=== PATIENT | female | born 1940 | race Caucasian/White ===

== ENCOUNTER → 2020-08-15 11:16 | Outpatient (CLI) | payer OTHER, SELFPAY ==
--- NOTE | ~2020-08-15 | CT_ITS ---
EXAMINATION: CT abdomen pelvis w con EXAM DATE: 08/15/2020 11:52 INDICATION: Loss, epigastric pain, nausea. TECHNIQUE: Spiral CT of the abdomen and pelvis was performed following intravenous injection of 100 m L Omnipaque 350. Axial, coronal and sagittal images were reviewed. The dose-length product (DLP) fo r this examination was 183.80 mGy-cm. The exposure was tailored according to patient size (auto mA e xposure control), and iterative reconstruction (ASIR) was used as additional dose reduction technique . Comparison is made to prior examination from 10/01/2018. FINDINGS: There is density within the right renal pelvis without definite evidence of calyceal contra st at this phase of imaging, indicating that this could be a solid soft tissue renal pelvic mass such as transitional cell cancer. This region measures about 1.7 cm, involves the proximal aspect of the right ureter. There is also mildly diffusely heterogeneous renal parenchymal enhancement bilaterally without perinephric fat stranding or ureteral enhancement. This could be sequela from prior infection s or infarctions, pyelonephritis not excludable. There is mild diffuse bladder wall thickening, acute or chronic cystitis. Recommend excluding cystitis and pyelonephritis with urinalysis. The largest liver cyst is in the caudate, measures 1.0 cm. The spleen, pancreas, and adrenal glands are unremarkable. Gallbladder is unremarkable. No biliary obstruction. The uterus is not identif ied and has likely been surgically resected. The bladder is unremarkable. There is no retroperitone al or pelvic lymphadenopathy. There is mild scattered arteriosclerotic disease. The appendix is normal. The stomach and small bowel are unremarkable. There is moderate scattered co lonic diverticulosis. There is no adjacent inflammatory change to suggest diverticulitis. No free i ntraperitoneal gas. The heart is normal in size. There are no pericardial or pleural effusions. T he lung bases are unremarkable. There are no osteoblastic or osteolytic lesions identified. IMPRESSION: 1. Right renal pelvic density suspicious for solid mass. Less likely excreted contrast. Consider consult for cystoscopy or CT urogram. 2. Mildly heterogeneous renal parenchymal enhancement bilaterally, could be small regions of prior i nfarction or infection; pyelonephritis not excludable. Consider urinalysis. 3. Diffuse mild bladder wall thickening, acute or chronic cystitis. 4. Colonic diverticulosis. Reviewed, dictated and finalized at location A. IMPRESSION: 1. Right renal pelvic density suspicious for solid mass. Less likely excreted contrast. Consider consult for cystoscopy or CT urogram. 2. Mildly heterogeneous renal parenchymal enhancement bilaterally, could be sm all regions of prior infarction or infection; pyelonephritis not excludable. Co nsider urinalysis. 3. Diffuse mild bladder wall thickening, acute or chronic cystitis. 4. Colonic diverticulosis.
[2020-08-15 11:36] LABS: Estimated Glomerular Filt Rate 48
== END ==
PROVIDERS: Visit Provider Student in an Organized Health Care Education/Training Program
DX: R63.4 Abnormal weight loss (principal); R10.13 Epigastric pain; R11.0 Nausea; K57.30 Diverticulosis of large intestine without perforation or abscess without bleeding
CPT/HCPCS: 74177; Q9967

== ENCOUNTER 2020-09-16 10:50 | Outpatient (CLI) | payer OTHER, SELFPAY ==
--- NOTE | 2020-09-16 10:53 | ECG_ITS ---
Measurements Intervals [place] Rate: 54 P: 74 [place]: 147 QRS: 8 QRSD: 149 T: 4 QT: 484 QTc: 461 Interpretive Statements SINUS BRADYCARDIA RIGHT BUNDLE BRANCH BLOCK BASELINE ARTIFACT- I, II, III, AVR, AVL ABNORMAL ECG Electronically Signed On 09-16-2020 12:06:35 CDT by Hudson Centeno D.O.
== END 2020-09-16 10:51 | disposition home or self-care (01) ==
LOC: ANHSURGERY 10:53
PROVIDERS: PCP Student in an Organized Health Care Education/Training Program; Visit Provider Urology
DX: I10 Essential (primary) hypertension (principal); I45.10 Unspecified right bundle-branch block; R00.1 Bradycardia, unspecified; R94.31 Abnormal electrocardiogram [ECG] [EKG]
CPT/HCPCS: 93005

== ENCOUNTER 2020-09-17 00:30 | Outpatient (CLI) | payer OTHER, SELFPAY ==
[2020-09-17 17:37] LABS: SARS-CoV-2 RNA PCR Negative
== END 2020-09-17 00:31 | disposition home or self-care (01) ==
LOC: ANHCOVIDDT 00:30
PROVIDERS: PCP Student in an Organized Health Care Education/Training Program; Visit Provider Urology
DX: Z01.812 Encounter for preprocedural laboratory examination (principal); Z20.828 Contact with and (suspected) exposure to other viral communicable diseases
CPT/HCPCS: 87635; C9803; U0003

== ENCOUNTER 2020-09-20 00:47 | Day surgery (SDC) | payer OTHER, SELFPAY ==
[2020-09-13 14:06] VITALS: BMI 16.7
--- NOTE | ~2020-09-20 | XR_ITS ---
EXAMINATION: XR retrograde pyelogram RT EXAM DATE: 09/20/2020 14:27 INDICATION: Right-sided obstructive nephropathy. TECHNIQUE: Fluoroscopy used during XR retrograde pyelogram RT performed by Dr. Mohsen Lugo MD. The DAP for this procedure was 1.6 mGym2. Cine run(s) available for review. Correlation was made with CT abdomen 08/15/2020. FINDINGS: Right ureter was cannulated, injected and is normal in appearance as are the calyces. No e vidence of renal pelvic mass to correlate with CT finding. Uncertain whether or not the recent CT fin ding could have been blood clot or excreted contrast. Correlate with procedure note. IMPRESSION: Fluoroscopy used during XR retrograde pyelogram RT. Reviewed, dictated and finalized at location A.
[2020-09-20] MEDS: LACTATED RINGERS 1,000 ML 30 ML IV CONT (12:18)
[2020-09-20 12:32] VITALS: BP 162/58; PULSE 47; RESP 16; TEMP 36.5; O2SAT 100
--- NOTE | 2020-09-20 13:16 | WPDHPUPDATE1 ---
History and Physical Update Update Date/Time: 09/20/20 13:16 History and Physical has been reviewed, including an updated exam of the patient. There are NO changes in the patient's condition. Risks, benefits, and alternatives have been discussed and questions answered. Patient agrees to proceed with procedure.
--- NOTE | 2020-09-20 13:21 | WPDANESEPPF ---
Anes - Initial Pre Proc Eval Procedure: Operation Date: 09/20/20 13:30 Proposed Procedures p Cystoscopy, Right Retrograde Pyelogram, Right Ureteroscopy with Possible Biopsy - Mohsen Lugo MD Date/Time: 09/20/20 13:21 Surgeon: Mohsen Lugo MD Pre Op Diagnosis: renal mass Patient Data Age: 80 Gender: F Height: 5 ft 5 in Weight: 48.2 kg Last Vital Signs Temp 36.5 C 09/20/20 12:32 Pulse 47 L 09/20/20 12:32 Resp 16 09/20/20 12:32 BP 162/58 H 09/20/20 12:32 Pulse Ox 100 09/20/20 12:32 Allergies Allergy/AdvReac Type Severity Reaction Status Date / Time No Known Allergies Allergy Unknown Verified 09/20/20 11:46 Home Medications Medication Instructions Recorded Confirmed Type cholecalciferol (vitamin D3) 50 2,000 unit PO DAILY #30 tablet 10/07/19 09/20/20 Rx mcg (2,000 unit) tablet fexofenadine-pseudoephedrine ER 1 tablet PO DAILY PRN #20 tablet 10/08/19 09/20/20 Rx 180 mg-240 mg tablet,ext.release 24 hr alprazolam 0.5 mg tablet 0.5 mg PO DAILY 01/27/20 09/20/20 History gabapentin 100 mg capsule 100 mg PO TID 01/27/20 09/20/20 History aspirin [Aspir-81] 81 mg PO DAILY 09/13/20 09/20/20 History calcium carb and citrat-mag ox 1 tablet PO QAM 09/13/20 09/20/20 History diltiazem HCl [Cartia XT] 180 mg DAILY 09/13/20 09/20/20 History donepezil [Aricept] 10 mg HS 09/13/20 09/20/20 History escitalopram oxalate 10 mg PO DAILY 09/13/20 09/20/20 History omeprazole 40 mg 3XW 09/13/20 09/20/20 History primidone 50 mg PO HS 09/13/20 09/20/20 History simvastatin 40 mg HS 09/13/20 09/20/20 History Patient hx anesthesia problems: none Family hx anesthesia problems: none PMFSH Past Medical History Medical History (Updated 01/27/20 @ 15:09 by Jazmin Schwartz RN) High cholesterol Hypertension Surgical History Surgical History History of elbow surgery Right History of hysterectomy Family History Family History Sibling Cerebrovascular accident, Onset Age: 77 Patient's sister is Mother Patient's mother is , Onset Age: 83 Father Patient's father is , Onset Age: 101 Social History Social History Smoking status: Never smoker Second hand tobacco smoke exposure: No Alcohol intake: unknown Substance use: never Living arrangements: with family Spiritual care concerns: No Anes - Eval Final PreProcedure Day of Procedure 09/20/20 13:21 Patient weight: thin Heart: regular rate and rhythm Lungs: clear to auscultation Airway: Mallampati scale class II Neurological: confused (dementia) Last oral intake: >/= 8 hours ASA classification: IV Emergent: no Anesthetic plan: proceed Anesthesia type and monitoring: general LMA and standard monitoring Informed Consent: The patient's anesthetic plan and its attendant risks and benefits were discussed with the patient and . Questions were solicited and answers provided to the satisfaction of the patient and .
--- NOTE | 2020-09-20 13:36 | WPDHPUPDATE1 ---
History and Physical Update Update Date/Time: 09/20/20 13:36 History and Physical has been reviewed, including an updated exam of the patient. There are NO changes in the patient's condition. Risks, benefits, and alternatives have been discussed and questions answered. Patient agrees to proceed with procedure. Proceed with cysto, right retrograde, right ureteroscopy with biopsy, possible stent placement.
[2020-09-20] MEDS: ceFAZolin 2 GM/D5W 50 ML 2 GM/50 ML BAG IVPB (13:54)
[2020-09-20] MEDS: LIDOCAINE HCL 2% GEL UROJET 10 ML PKG MUCOUS MEM (14:27)
--- NOTE | 2020-09-20 14:27 | P.OP_ITS ---
Procedure Note - Detailed Date of procedure: 09/20/20 Pre-op diagnosis: renal mass Post-op diagnosis: other ( no evidence of right renal pelvic mass or lesion.) Procedure performed: Cystoscopy, right retrograde pyelogram, right ureteroscopy Description of procedure: patient is taken to the operative suite and correctly identified. Once anesthesia was obtained she was placed in the dorsal lithotomy position and prepped and draped usual sterile fashion. Twenty-two K[place] scope was inserted the bladder. There are no tumors noted. Right ureteral orifice was cannulated with a [place] catheter. Retrograde pyelogram was performed. Th ere was no discrete filling defects noted. Given the CT findings we proceed with right ureteroscopy. A guidewire was then inserted up to the kidney. We dilated with an 8/10 dilator. A mini flexible ureteroscope was then inserted into the orifice. We did place a 2nd wire to help guide into the renal pelvis. Once in the renal pelvis the entire kidney was evaluated including the renal pelvis as well as every calyx. there were no tumors or irregularities noted at this time. Scope was removed. 2% viscous lidocaine was inserted urethra patient is taken recovery room stable condition. No further urologic follow-up needed at this time. Anesthesia: GLMA Surgeon: Mohsen Lugo MD Drains: No Packing: No Pathology: none sent Complications: No immediate complications Condition: stable Disposition: PACU
[2020-09-20 14:31] VITALS: BP 155/65; PULSE 49; RESP 9; TEMP 36.6; O2SAT 100
[2020-09-20 14:45] VITALS: BP 159/69; PULSE 50; RESP 12; O2SAT 100
[2020-09-20 15:00] VITALS: BP 157/68; PULSE 52; RESP 13; O2SAT 100
[2020-09-20 15:04] VITALS: BP 156/83; PULSE 65; RESP 16
[2020-09-20] MEDS: ONDANSETRON INJ 4 MG/2 ML VIAL IV PUSH ×2 (15:12→15:59)
[2020-09-20 15:34] VITALS: BP 151/61; PULSE 55; RESP 16
--- NOTE | 2020-09-20 15:34 | SUR.PHASEII ---
AT BEDSIDE THROUGHOUT OP STAY.
[2020-09-20] MEDS: ONDANSETRON HCL ODT 4 MG TABLET PO (16:12)
== END 2020-09-20 16:15 | disposition home or self-care (01) ==
PROVIDERS: PCP Student in an Organized Health Care Education/Training Program; Visit Provider Urology
PROC: (CPT 52352; principal; 2020-09-20 13:30)
DX: R93.421 Abnormal radiologic findings on diagnostic imaging of right kidney (principal); I10 Essential (primary) hypertension
CPT/HCPCS: 52351; 74420; A9270; C1758; C1769; J0690; J2405; J2704; J7120; Q9966

== ENCOUNTER 2021-02-01 14:01 | Outpatient (CLI) | payer OTHER, MEDICARE, SELFPAY | END 2021-02-01 14:02 | disposition home or self-care (01) | PROVIDERS: PCP Student in an Organized Health Care Education/Training Program | DX: Z23 Encounter for immunization (principal) | CPT/HCPCS: 0001A; 91300 ==

== ENCOUNTER 2021-02-22 13:54 | Outpatient (CLI) | payer OTHER, MEDICARE, SELFPAY | END 2021-02-22 13:55 | disposition home or self-care (01) | LOC: ANHCOVIDVC 13:54 | PROVIDERS: PCP Student in an Organized Health Care Education/Training Program | DX: Z23 Encounter for immunization (principal) | CPT/HCPCS: 0002A; 91300 ==

== ENCOUNTER → 2021-10-24 09:34 | Outpatient (REF) | payer OTHER, SELFPAY | LOC: ANHLAB 09:34 | PROVIDERS: PCP Student in an Organized Health Care Education/Training Program; Visit Provider Nurse Practitioner | DX: L57.0 Actinic keratosis (principal) | CPT/HCPCS: 88305 ==

== ENCOUNTER 2022-01-17 20:13 | Inpatient (IN) | payer OTHER, SELFPAY ==
--- NOTE | ~2022-01-17 | US_ITS ---
EXAMINATION: US carotid duplex BI DATE: 01/18/2022 15:32 INDICATION: Syncope. Carotid atherosclerosis. TECHNIQUE: Grayscale, color Doppler, and pulsed Doppler images of the cervical carotid arteries were obtained. The degree of vessel stenosis is placed in one of the following categories: normal, <50%, 5 0-69%, >=70% but less than near-occlusion, near-occlusion, or total occlusion. Note that percent sten osis relative to normal distal artery lumen diameter is indirectly measured from velocity measurement s as described by Molina, et al. Radiology 2003; 229:340-346. COMPARISON: 05/31/2017 FINDINGS: RIGHT: The right common carotid artery (CCA) peak systolic velocity (PSV) is 88 cm/s. The right internal car otid artery (ICA) PSV is 80 cm/s. The right ICA end-diastolic velocity (EDV) is 16 cm/s. The right IC A/CCA PSV ratio is 1.0. Grayscale and color Doppler images yield an estimate of <50% diameter reducti on from plaque in the ICA. The external carotid artery (ECA) PSV is 58 cm/s. There is antegrade flow in the right vertebral artery. LEFT: The left CCA PSV is 96 cm/s. The left ICA PSV is 119 cm/s. The left ICA EDV is 22 cm/s. The left ICA/ CCA PSV ratio is 1.2. Grayscale and color Doppler images yield an estimate of <50% diameter reduction from plaque in the ICA. The ECA PSV is 65 cm/s. There is antegrade flow in the left vertebral artery . IMPRESSION: 1. <50% stenosis in the right internal carotid artery. 2. <50% stenosis in the left internal carotid artery. Reviewed, dictated and finalized at location A. EWORKING BELT SANDER
--- NOTE | ~2022-01-17 | XR_ITS ---
EXAMINATION: XR chest 1V portable DATE: 01/17/2022 20:54 INDICATION: Hypertension. Syncope. TECHNIQUE: frontal view of the chest was obtained. COMPARISON: Chest radiograph dated 04/03/2016 FINDINGS: No focal airspace opacities, pulmonary edema, pleural effusion or pneumothorax. The cardiomediastinal silhouette is normal. IMPRESSION: 1. No acute cardiopulmonary disease. Reviewed, dictated and finalized at location A. SHOP SUPERVISOR
--- NOTE | ~2022-01-17 | CT_ITS ---
EXAMINATION: CT cervical spine wo con DATE: 01/17/2022 20:51 INDICATION: Found down post syncopal episode with fall TECHNIQUE: Computed tomography (CT) of the cervical spine was performed without intravenous contrast. Automated exposure control and iterative reconstruction technique were employed. The dose-length pro duct was 80.27 mGy-cm. COMPARISON: None FINDINGS: Mild cervicothoracic levocurvature. Exaggerated cervical kyphosis. No spondylolisthesis or facet subl uxation. Vertebral body heights are normal. No fracture. Moderate disc height loss at C6-C7 and mild disc height loss at C5-C6. No central canal stenosis. Multilevel bilateral moderate to severe cervica l facet osteoarthritis. Moderate neural from stenosis on the right at C5-C6. Small amount of atherosc lerotic calcific lesion at the bilateral carotid bulbs. Cervical soft tissues are unremarkable. IMPRESSION: 1. Mild to moderate cervical spondylosis. No acute osseous abnormality. Reviewed, dictated and finalized at location A. S AND MARKETING DIRECTOR
--- NOTE | ~2022-01-17 | CT_ITS ---
EXAMINATION: CT brain wo con DATE: 01/17/2022 20:51 INDICATION: Found down post syncopal episode with fall. TECHNIQUE: Computed tomography (CT) of the head was performed without intravenous contrast. Sagittal and coronal reconstructions were performed. The mA was adjusted according to patient size. Iterative reconstruction technique was employed. The dose-length product was 605.33 mGy-cm. COMPARISON: None FINDINGS: No fracture. No acute intracranial hemorrhage, acute infarction or abnormal extra axial fluid collect ion. Symmetric dystrophic calcifications at the bilateral basal ganglia. There is mild scattered whit e matter hypoattenuation consistent with chronic small vessel ischemic disease. Symmetric prominence of the sulci and ventricles consistent with moderate age-appropriate diffuse cerebral volume loss. Ve ntricles are normal and symmetric. No mass/mass effect. Changes of bilateral intraocular lens replace ment. The orbits, paranasal sinuses and mastoid air cells are normal. Mild intracranial calcified cer ebral atherosclerosis is noted at the carotid siphons. IMPRESSION: 1. No fracture or acute intracranial process. 2. Age-related changes including moderate diffuse volume loss and mild scattered white matter hypoatt enuation consistent with chronic small vessel ischemic disease. Reviewed, dictated and finalized at location A. UNICATIONS FIELD TECHNICIAN IMPRESSION: 1. No fracture or acute intracranial process. 2. Age-related changes including moderate diffuse volume loss and mild scattere d white matter hypoattenuation consistent with chronic small vessel ischemic di sease.
--- NOTE | 2022-01-17 20:22 | ECG_ITS ---
Measurements Intervals [place] Rate: 52 P: 52 [place]: 148 QRS: -19 QRSD: 154 T: -6 QT: 519 QTc: 486 Interpretive Statements SINUS BRADYCARDIA RIGHT BUNDLE BRANCH BLOCK BASELINE ARTIFACT- I, II, III, AVR, AVF, V2-V6 ABNORMAL ECG Electronically Signed On 01-17-2022 21:14:15 ASSET SPECIALIST by Hudson Centeno D.O.
[2022-01-17 20:23] VITALS: BP 110/43; PULSE 49; RESP 14; TEMP 36.6; O2SAT 95
--- NOTE | 2022-01-17 20:31 | ED.GENADULT ---
HPI - General Adult General Chief complaint: Syncope Stated complaint: syncopal - found on floor after approx 30 seconds Source: RN notes reviewed History of Present Illness HPI narrative: Patient presents emergency department from home via EMS for syncopal episode. The patient was in the bathroom brushing her teeth caring for bed when she had a syncopal episode. The was not initially in the room but came in and the patient was on the ground was out for approximately 30 seconds patient does not recall having any dizziness denies having any chest pain or shortness of breath she states she feels fine at this time patient does have a history of dementia and is ANO x2 at baseline denies any fevers or chills or recent illness Related Data Home Medications Medication Instructions Recorded Confirmed gabapentin 100 mg capsule 100 mg PO TID 01/27/20 09/20/20 aspirin 81 mg PO EVERY OTHER DAY 09/13/20 09/20/20 donepezil [Aricept] 10 mg HS 09/13/20 09/20/20 escitalopram oxalate 10 mg PO DAILY 09/13/20 09/20/20 omeprazole 40 mg 3XW 09/13/20 09/20/20 primidone 50 mg PO HS 09/13/20 09/20/20 acetaminophen 500 mg tablet 500 mg PO Q6H PRN 06/20/21 alprazolam 0.5 mg tablet 0.5 mg PO BID PRN tablet 06/20/21 amlodipine 2.5 mg tablet 2.5 mg PO DAILY tablet 06/20/21 atorvastatin 20 mg tablet 20 mg PO DAILY tablet 06/20/21 calcium 1 tablet PO BID tablet 06/20/21 carbonate,citrate-magnesium oxide 200 mg calcium-50 mg tablet docusate sodium 100 mg capsule 100 mg PO DAILY 06/20/21 memantine 7 mg capsule 7 mg PO DAILY ea 06/20/21 sprinkle,extended release 24hr multivitamin 1 tablet PO DAILY 06/20/21 omega-3 fatty acids 500 mg capsule 500 mg PO DAILY 06/20/21 polyethylene glycol 3350 17 17 g PO DAILY 06/20/21 gram/dose oral powder Allergies Allergy/AdvReac Type Severity Reaction Status Date / Time No Known Allergies Allergy Unknown Verified 11/13/21 13:33 Review of Systems Review of Systems: Gen.: Denies fevers or chills Eyes: Denies eye pain or visual change ENT: Denies congestion Respiratory: Denies shortness of breath or cough CV: Ports syncope GI: Denies abdominal pain nausea, emesis or diarrhea Musculoskeletal: Denies back pain or muscle pain Neuro: Denies numbness, tingling, weakness or focal weakness Skin: Denies rash Except as documented, all other systems reviewed and negative [facility] Past Medical History Medical History High cholesterol Hypertension Surgical History Surgical History History of elbow surgery Right History of hysterectomy Family History Family History Sibling Cerebrovascular accident, Onset Age: 77 Patient's sister is Mother Patient's mother is , Onset Age: 83 Father Patient's father is , Onset Age: 101 Social History Social History Smoking status: Never smoker Second hand tobacco smoke exposure: No Alcohol intake: never Substance use: never Spiritual care concerns: No Exam Narrative: APPEARANCE: No acute distress, nontoxic, resting in bed EYES: EOMI PERRL HEENT: Normocephalic, atraumatic, OMM RESPIRATORY: No respiratory distress Clear to auscultation bilaterally with no rhonchi wheezing or rales. CARDIOVASCULAR: Regular rate and rhythm without murmurs rubs or gallops. ABDOMINAL: Soft, nontender, nondistended, no rebound or guarding MUSCULOSKELETAl: Moves all extremities. No clubbing, cyanosis or edema. NEURO: Awake and alert x 2. Following commands, speech normal, no focal deficits SKIN:: Warm, dry. No rashes lesions or abrasions PSYCHIATRIC: Normal affect/mood, Course Course Emergency Course: Discussed with Dr. Levine presentation work-up agrees with admission at [facility]
--- NOTE | 2022-01-17 20:41 | PC.NURSE ---
PT TO CT SCAN.
[2022-01-17] MEDS: SODIUM CHLORIDE 0.9% IV 1,000 ML 999 ML IV CONT (21:13)
[2022-01-17 21:17] VITALS: BP 141/55; PULSE 51
[2022-01-17 21:19] VITALS: BP 136/50; PULSE 52
[2022-01-17 21:20] LABS: Basophils Percent Auto 0.3 % (0.2-1.2); Eosinophils Absolute Auto 0.1 K/mm3 (0-0.3); Eosinophils Percent Auto 1.4 % (0-4.4); Hematocrit 36.7 % (37.0-47.0); Hemoglobin 11.9 g/dL (12.0-15.0); Immature Granulocyte Absolute 0.03 K/mm3 (0.00-0.031); Immature Granulocyte Percent A 0.5 % (0-0.5); Lymphocytes Percent Auto 15.4 % (18.3-44.2); Mean Corpuscular HGB Conc 32.4 g/dl (32-36); Mean Corpuscular Hemoglobin 31.2 pg (26-34); Mean Corpuscular Volume 96.1 fl (80-100); Mean Platelet Volume 10.8 fl (7.4-10.4); Monocytes Absolute Auto 0.7 K/mm3 (0.1-0.6); Monocytes Percent Auto 11.4 % (2.6-8.5); Neutrophils Absolute Auto 4.6 K/mm3 (1.3-6.7); Platelet Count Result 141 k/mm3 (150-375); Red Blood Count 3.82 M/mm3 (4.2-5.4); Red Cell Distribution Width 13.2 % (11.5-14.5); White Blood Count 6.5 K/mm3 (4.5-10.0)
[2022-01-17 21:23] VITALS: BP 120/44; PULSE 57
[2022-01-17 21:32] LABS: Prothrombin Time 12.6 Seconds (11.1-14.7)
[2022-01-17 21:34] LABS: Alanine Aminotransferase 19 U/L (4-35); Albumin Level 3.8 g/dL (3.5-5.1); Alkaline Phosphatase 67 U/L (38-126); Anion Gap 6 mmol/L (8-16); Aspartate Amino Transferase 30 U/L (14-36); Bilirubin,Total 0.3 mg/dL (0.2-1.3); Blood Urea Nitrogen 21 mg/dL (7-17); Calcium 9.1 mg/dL (8.4-10.2); Carbon Dioxide 28 mmol/L (22-30); Chloride 104 mmol/L (98-107); Estimated CRCL calculation 30 ml/min; Estimated Glomerular Filt Rate 48; Glucose 125 mg/dL (65-110); Sodium 138 mmol/L (137-145)
[2022-01-17 21:45] LABS: Troponin I < 0.012 ng/mL (0.000-0.034)
--- NOTE | 2022-01-17 22:40 | PM.IMHP ---
H&P: HPI History of Present Illness Date/Time: 01/17/22 22:40 Chief Complaint: Syncope Narrative: This is an 81-year-old female with past medical history significant for Alzheimer's dementia, hypertension, dyslipidemia. Patient was brought to the emergency room after a year according to the while she was using the bathroom he heard a noise and when went to check she was laying on the floor. 911 was called and patient was brought to the emergency room. According to she has been her usual state of health patient is very confused and unable to give any history she knows she is in the hospital but does not know why , has no recollection of the events. Preliminary workup has been unrevealing. Review of Systems Review of Systems: ROS unobtainable: Yes unobtainable due to medical condition (Alzheimer's dementia) [facility] Past Medical History Medical History (Updated 01/18/22 @ 03:48 by Chuck Moon MD) High cholesterol Hypertension Surgical History Surgical History History of elbow surgery Right History of hysterectomy Family History Family History Sibling Cerebrovascular accident, Onset Age: 77 Patient's sister is Mother Patient's mother is , Onset Age: 83 Father Patient's father is , Onset Age: 101 Social History Social History Smoking status: Never smoker Second hand tobacco smoke exposure: No Alcohol intake: never Substance use: never Spiritual care concerns: No Meds Home Medications and Allergies Home Medications Medication Instructions Recorded Confirmed Type cholecalciferol (vitamin D3) 50 2,000 unit PO DAILY #30 tablet 10/07/19 01/18/22 Rx mcg (2,000 unit) tablet gabapentin 100 mg capsule 100 mg PO TID 01/27/20 01/18/22 History aspirin 81 mg PO EVERY OTHER DAY 09/13/20 01/18/22 History donepezil [Aricept] 10 mg HS 09/13/20 01/18/22 History escitalopram oxalate 10 mg PO DAILY 09/13/20 01/18/22 History omeprazole 40 mg 3XW 09/13/20 01/18/22 History primidone 50 mg PO HS 09/13/20 01/18/22 History acetaminophen 500 mg tablet 500 mg PO Q6H PRN 06/20/21 01/18/22 History alprazolam 0.5 mg tablet 0.5 mg PO BID PRN tablet 06/20/21 01/18/22 History amlodipine 2.5 mg tablet 2.5 mg PO DAILY tablet 06/20/21 01/18/22 History atorvastatin 20 mg tablet 20 mg PO DAILY tablet 06/20/21 01/18/22 History calcium 1 tablet PO BID tablet 06/20/21 01/18/22 History carbonate,citrate-magnesium oxide 200 mg calcium-50 mg tablet docusate sodium 100 mg capsule 100 mg PO DAILY 06/20/21 01/18/22 History memantine 7 mg capsule 7 mg PO DAILY ea 06/20/21 01/18/22 History sprinkle,extended release 24hr multivitamin 1 tablet PO DAILY 06/20/21 01/18/22 History omega-3 fatty acids 500 mg capsule 500 mg PO DAILY 06/20/21 01/18/22 History polyethylene glycol 3350 17 17 g PO DAILY 06/20/21 01/18/22 History gram/dose oral powder Allergies Allergy/AdvReac Type Severity Reaction Status Date / Time No Known Allergies Allergy Unknown Verified 11/13/21 13:33 Vital Signs Vital Signs - 24 hr 01/17/22 20:23 01/17/22 21:17 01/17/22 21:19 Temperature 98 F Pulse Rate 49 L 51 L 52 L Respiratory Rate 14 Blood Pressure 110/43 L 141/55 H 136/50 L Pulse Oximetry 95 01/17/22 21:23 Temperature Pulse Rate 57 L Respiratory Rate Blood Pressure 120/44 L Pulse Oximetry Exam Narrative: Patient is sitting in a stretcher Const: General: cooperative, comfortable, no acute distress, well developed, alert and awake Nutritional Appearance: thin Orientation/consciousness: oriented to person and oriented to place HENMT: Head: normal to inspection, normocephalic and atraumatic Ears: hearing grossly normal bilaterally General nose exam: Normal external
[2022-01-17 22:47] VITALS: BP 111/85; PULSE 58; RESP 16; O2SAT 98
[2022-01-17 23:36] LABS: SARS-CoV-2 RNA PCR Negative
[2022-01-18] VITALS (17 sets, daily range): BP systolic 128–1686; BP diastolic 57–67; PULSE 52–71; RESP 16–58; TEMP 36.4; O2SAT 96–99; BMI 19.3
--- NOTE | 2022-01-18 | ECHO_ITS ---
Patient Info Name: Yomaira June Age: 81 years : 1940 Gender: Female Ht: 66 in Wt: 120 lbs BSA: 1.59 m2 HR: 71 bpm BP: 146 / 57 mmHg Heart Rhythm: Sinus Rhythm Technical Quality: Good Exam Date: 01/18/2022 9:05 AM Exam Location: [facility] Exam Room: 252 Patient Status: Inpatient Admit Date: 01/17/2022 Staff Ordering Physician: Chuck Moon MD Electrician Crane Maintenance: Liz Blair RDCS Attending Provider: Carol Oconnell PA-C Referring Physician: Sarai WYATT; Exam Type: CA echo doppler color flow Study Info Indications - syncope Complete two-dimensional, color flow and Doppler transthoracic echocardiogram is performed. Summary 1. Complete two-dimensional, color flow and Doppler transthoracic echocardiogram is performed. 2. Left ventricular chamber dimension is normal. 3. Left ventricular systolic function is normal, estimated at 65-70%. 4. There is mildly increased left ventricular wall thickness. 5. The left ventricular diastolic function is grade II diastolic dysfunction. 6. There is no aortic valve stenosis. 7. There is mild tricuspid valve regurgitation. 8. Mild pulmonary hypertension, estimated pulmonary arterial systolic pressure is 40 mmHg. Left Ventricle Left ventricular chamber dimension is normal. Left ventricular systolic function is normal, estimated at 65-70%. There is mildly increased left ventricular wall thickness. The left ventricular diastolic function is grade II diastolic dysfunction. Right Ventricle Right ventricular chamber dimension is normal. Right ventricular systolic function is normal. Left Atria Left atrial chamber dimension is normal. Right Atria Right atrial chamber dimension is normal. Aortic Valve The aortic valve is trileaflet. There is no aortic valve stenosis. There is mild aortic valve regurgitation. Pulmonic Valve The pulmonic valve is normal. There is mild pulmonic regurgitation. Mitral Valve The mitral valve has normal leaflets. There is mild mitral valve regurgitation. The mitral valve annulus is mildly calcified. Tricuspid Valve The tricuspid valve leaflets are normal. There is mild tricuspid valve regurgitation. Mild pulmonary hypertension, estimated pulmonary arterial systolic pressure is 40 mmHg. Pericardium/Pleural The pericardium appears normal. There is no pericardial effusion. Inferior Vena Cava Dilated inferior vena cava with >50% collapse upon inspiration consistent with elevated right atrial pressure, 10 mmHg. Aorta The aortic root size at the sinus of Valsalva is normal. Left Ventricular Outflow Tract Name Value Normal LVOT 2D LVOT Diameter 2.0 cm LVOT Doppler LVOT Peak Gradient 4 mmHg LVOT Mean Gradient 2 mmHg LVOT VTI 27 cm LVOT VTI/AV VTI Ratio 0.9 LVOT Stroke Volume 86 ml LVOT CO 13.6 l/min LVOT CI 8.6 l/min/m2 Pulmonic Valve
[2022-01-18] MEDS: SODIUM CHLORIDE 0.9% IV 1,000 ML 999 ML IV CONT (01:04)
[2022-01-18 01:54] LABS: Add Urine Microscopic? YES; Appearance Urine Clear (Clear); Bilirubin Urine Negative (Negative); Blood Urine Negative (Negative); Color Urine Straw (Yellow); Glucose Urine UA Negative (Negative); Ketones Urine Negative (Negative); Leukocyte Esterase Ur Negative LEU/UL (Negative); Mucus Urine Rare /lpf; Nitrate Urine Negative (Negative); Protein Urine Negative (Negative); RBC Urine 0-2 /hpf (0-2); Urobilinogen Urine Negative mg/dL (<2.0); WBC Urine 0-3 /hpf
--- NOTE | 2022-01-18 02:02 | ADMGEN ---
This patient, Yomaira June, was admitted to Medical Room 252-01. Patient/family oriented to hospital policies and general routines including ID bracelet, bed and alarms, visiting hours, pain management, procedures, bathroom and other care routines, personal items, smoking policy, room service/diet, and visiting hours. Information on how to activate the Rapid Response Team has been discussed. Patient/Family are encouraged to report perceived risks to care and to ask questions if they do not understand what they are told or what they should do.
--- NOTE | 2022-01-18 02:39 | PC.NURSE ---
PT IS [place] [facility] AND ORIENTED X2. CONFUSED AT BASELINE BUT ABLE TO ANSWER SOME QUESTIONS. CALLED TO CONFIRM MEDICATION LIST.
[2022-01-18 05:53] LABS: Basophils Percent Auto 0.2 % (0.2-1.2); Eosinophils Absolute Auto 0.1 K/mm3 (0-0.3); Eosinophils Percent Auto 1.5 % (0-4.4); Hematocrit 35.1 % (37.0-47.0); Hemoglobin 11.1 g/dL (12.0-15.0); Immature Granulocyte Absolute 0.02 K/mm3 (0.00-0.031); Immature Granulocyte Percent A 0.3 % (0-0.5); Immature Platelet Fraction Pct 5.5 % (0.9-11.2); Lymphocytes Absolute Auto 1.39 K/mm3 (0.9-3.2); Lymphocytes Percent Auto 22.9 % (18.3-44.2); Mean Corpuscular HGB Conc 31.6 g/dl (32-36); Mean Corpuscular Hemoglobin 30.5 pg (26-34); Mean Corpuscular Volume 96.4 fl (80-100); Mean Platelet Volume 11.3 fl (7.4-10.4); Monocytes Absolute Auto 0.8 K/mm3 (0.1-0.6); Monocytes Percent Auto 13.7 % (2.6-8.5); Neutrophils Absolute Auto 3.7 K/mm3 (1.3-6.7); Neutrophils Percent Auto 61.4 % (45.5-73.1); Platelet Count Result 125 k/mm3 (150-375); Red Blood Count 3.64 M/mm3 (4.2-5.4); Red Cell Distribution Width 13.1 % (11.5-14.5); White Blood Count 6.1 K/mm3 (4.5-10.0)
[2022-01-18 07:02] LABS: Anion Gap 2 mmol/L (8-16); Blood Urea Nitrogen 21 mg/dL (7-17); Calcium 8.5 mg/dL (8.4-10.2); Carbon Dioxide 29 mmol/L (22-30); Chloride 111 mmol/L (98-107); Estimated CRCL calculation 37 ml/min; Estimated Glomerular Filt Rate 60; Glucose 98 mg/dL (65-110); Sodium 142 mmol/L (137-145)
[2022-01-18 07:14] LABS: Troponin I < 0.012 ng/mL (0.000-0.034)
[2022-01-18] MEDS: ASPIRIN 81 MG ENTERIC TABLET PO (08:26)
[2022-01-18] MEDS: CHOLECALCIFEROL 1,000 UNITS TABLET 2000 UNITS PO (08:26)
[2022-01-18] MEDS: ATORVASTATIN 20 MG TABLET PO (08:26)
[2022-01-18] MEDS: polyethylene glycoL 3350 17 GM POWD.PACK PO (08:27)
[2022-01-18] MEDS: MULTIVITAMINS THERAPEUTIC TAB (*BKC) 1 TABLET PO (08:27)
[2022-01-18] MEDS: MEMANTINE HCL XR 7 MG CAP PO (08:27)
[2022-01-18] MEDS: DOCUSATE SODIUM 100 MG CAPSULE PO (08:27)
[2022-01-18] MEDS: ESCITALOPRAM OXALATE 10 MG TABLET PO (08:27)
[2022-01-18] MEDS: GABAPENTIN 100 MG CAPSULE PO ×3 (08:27→16:46)
--- NOTE | 2022-01-18 15:31 | PM.IMPN ---
Progress Note: A&P Assessment and Plan (1) Syncope: Code(s): R55 - Syncope and collapse Status: Acute Assessment and Plan: Initial history sounds to be consistent with syncope Reported that her found her on the ground and she was out for approximately 30 seconds Patient denies hitting her head. Denies any other injuries. It sounds as though she did not fall but instead lowered herself to the ground. Telemetry reviewed which showed sinus rhythm, occasionally sinus bradycardia in the upper 50s EKG reviewed which showed sinus bradycardia with right bundle branch block Head CT with no acute intracranial process with evidence of moderate diffuse volume loss consistent with chronic small-vessel disease Cervical spine CT with mild spondylosis, no acute findings Carotid Doppler with <50% stenosis of bilateral internal carotid arteries Orthostatic blood pressures negative initially. Repeat Echocardiogram pending Appreciate PT/OT eval Fall precautions (2) Hypertension: Code(s): I10 - Essential (primary) hypertension Status: Acute Assessment and Plan: Blood pressure reviewed and has been reasonably controlled. Last BP 130/64 Continue amlodipine (3) Dementia: Code(s): F03.90 - Unspecified dementia without behavioral disturbance Status: Acute Assessment and Plan: Patient is A&O to self and location. Knows the month and the president but not the year Continue memantine and donepezil Subjective Date/time seen: 01/18/22 15:31 Interval history: Date of service: 01/18/2022 Yomaira June is an 81-year-old female with a history of hypertension, hyperlipidemia, dementia who is seen in follow-up for syncopal episode. The patient is a pretty poor historian and is difficult to obtain information from her. She wants to be discharged home and states that someone told her yesterday that she could go home today. She had a difficult time recalling the details of her hospitalization. She states she has been falling and it's like I just wilted. She did not trip or lose her balance. She denies feeling poorly prior to her fall. I want to find out why I am wilting. It sounds as though she is feeling faint and sliding herself to the ground before she falls. She states she has had 2 episodes of this. She denies chest pain. Denies palpitations. Denies feeling dizzy or lightheaded. She states she is getting around well. She denies visual changes or speech changes. Denies dysphagia. Not able to obtain any further history Review of Systems Review of Systems: All systems reviewed & are unremarkable except as noted in HPI and below Exam Narrative: General: Well-nourished, well-appearing 81 year-old female, sitting up in bed, comfortable, NARD Neuro: awake, alert and oriented x3 (can state month but thought the year was 2019), speech clear, no focal neuro deficits noted, exhibits forgetfulness in conversation HEENMT: normocephalic, atraumatic, EOMI, sclerae anicteric, moist oral mucosa Respiratory: clear to auscultation bilaterally, nonlabored breathing Cardio: regular rate, regular rhythm with S1-S2 Abdomen: nondistended, normoactive bowel sounds, soft, nontender to palpation Extremities: no edema, erythema, or tenderness to palpation, DP pulses 2+ bilaterally Skin: no rashes or lesions, warm and dry Psych: appropriate mood and affect, judgment and insight fair Objective Data Vital Signs Vital Signs: Vital Signs - 24 hr 01/17/22 20:23 01/17/22 21:17 01/17/22 21:19 Temperature 98 F Pulse Rate 49 L 51 L 52 L Respiratory Rate 14 Blood Pressure 110/43 L 141/55 H 136/50 L Pulse Oximetry 95 01/17/22 21:23 01/17/22 22:47 01/18/22 00:00 Temperature Pulse Rate 57 L 58 L 63 Respiratory Rate 16 16 Blood Pressure 120/44 L 111/85 128/58 L Pulse Oximetry 98 99 01/18/22 01:07 01/18/22 02:00 01/18/22 02:21 Temperature 97.5 F L Pulse Rate 60
[2022-01-18] MEDS: PRIMIDONE 50 MG TABLET PO (20:27)
[2022-01-18] MEDS: DONEPEZIL HCL 10 MG TABLET BY MOUTH (20:27)
[2022-01-19] VITALS (12 sets, daily range): BP systolic 108–151; BP diastolic 48–62; PULSE 42–55; RESP 16–18; TEMP 35.7–36.8; O2SAT 94–98
[2022-01-19 06:06] LABS: Hematocrit 38.9 % (37.0-47.0); Hemoglobin 12.4 g/dL (12.0-15.0)
[2022-01-19 06:09] LABS: Anion Gap 3 mmol/L (8-16); Blood Urea Nitrogen 17 mg/dL (7-17); Calcium 8.7 mg/dL (8.4-10.2); Carbon Dioxide 31 mmol/L (22-30); Chloride 107 mmol/L (98-107); Estimated CRCL calculation 37 ml/min; Estimated Glomerular Filt Rate 60; Glucose 92 mg/dL (65-110); Potassium 4.1 mmol/L (3.4-5.0); Sodium 141 mmol/L (137-145)
[2022-01-19] MEDS: PANTOPRAZOLE 40 MG TABLET PO (08:12)
[2022-01-19] MEDS: ESCITALOPRAM OXALATE 10 MG TABLET PO (08:12)
[2022-01-19] MEDS: MULTIVITAMINS THERAPEUTIC TAB (*BKC) 1 TABLET PO (08:12)
[2022-01-19] MEDS: CHOLECALCIFEROL 1,000 UNITS TABLET 2000 UNITS PO (08:12)
[2022-01-19] MEDS: DOCUSATE SODIUM 100 MG CAPSULE PO (08:12)
[2022-01-19] MEDS: MEMANTINE HCL XR 7 MG CAP PO (08:12)
[2022-01-19] MEDS: GABAPENTIN 100 MG CAPSULE PO ×2 (08:12→13:04)
[2022-01-19] MEDS: ATORVASTATIN 20 MG TABLET PO (08:12)
[2022-01-19] MEDS: polyethylene glycoL 3350 17 GM POWD.PACK PO (08:14)
--- NOTE | 2022-01-19 13:05 | P.PNIM_ITS ---
Progress Note: A&P Assessment and Plan (1) Syncope: Code(s): R55 - Syncope and collapse Status: Acute Assessment and Plan: Initial history sounds to be consistent with vasovagal syncope * Reported that her found her on the ground and she was out for approximately 30 seconds. He noted that she was shaking in both upper extremities. * Patient denies hitting her head. Denies any other injuries. = * Telemetry reviewed showing sinus bradycardia with heart rate ranging from 40- 50s. * EKG reviewed which showed sinus bradycardia with right bundle branch block * Head CT with no acute intracranial process with evidence of moderate diffuse volume loss consistent with chronic small-vessel disease * Cervical spine CT with mild spondylosis, no acute findings * Carotid Doppler with <50% stenosis of bilateral internal carotid arteries * Orthostatic blood pressures negative initially but on repeat yesterday evening had 21 point drop in systolic BP * Will proceed with EEG given reports of upper extremity tremors * Echocardiogram with normal EF 65-70%, grade II diastolic dysfunction, no significant valvular disease * Appreciate PT/OT eval * Fall precautions implemented (2) Symptomatic bradycardia: Code(s): R00.1 - Bradycardia, unspecified Status: Acute Assessment and Plan: Telemetry reviewed with bradycardia ranging 40-50s * Possibly contributing to syncope. notes 2 prior episodes of syncope over the past several months * notes he monitors patients heart rate at home and frequently runs in the 40s * She has been evaluated by a dispute resolution analyst, Dr. Metcalf, at [facility] sometime over the past year and did have a assistant director of security at one point but no follow up. Her would like her to be evaluated by a dispute resolution analyst during her admission and will proceed with consultation in light of symptomatic bradycardia. Appreciate recommendations * Continue to monitor on telemetry * EKG reviewed. (3) Orthostatic hypotension: Code(s): I95.1 - Orthostatic hypotension Status: Acute Assessment and Plan: As above, noted to have 21 point drop in systolic BP from sitting to standing * She was rehydrated with IV fluids and appears euvolemic on exam * BRIAN hose * Continue to monitor BP trends * Fall precautions * Will hold amlodipine as BP this morning was soft at 110/48 (4) Hypertension: Code(s): I10 - Essential (primary) hypertension Status: Acute Assessment and Plan: BP soft today and patient orthostatic * Hold amlodipine * Appreciate cardiology recommendations regarding this (5) Dementia: Code(s): F03.90 - Unspecified dementia without behavioral disturbance Status: Acute Assessment and Plan: Patient is A&O to self today. * Continue memantine * Hold donepezil as this may contribute to bradycardia, heart block, syncope Subjective Date/time seen: 01/19/22 13:05 Interval history: Date of service: 01/19/2022 Yomaira June is an 81-year-old female with a history of hypertension, hyperlipidemia, dementia who is seen in follow-up for syncopal episode. She is a poor historian due to her dementia. I am not able to obtain a reliable history. This morning she did not know she was in the hospital. She was oriented to self only. I returned to see the patient when her arrived so that I could provide updates to him and answer his questions. Review of Systems Review of Systems: All systems reviewed & are unremarkable except as n
--- NOTE | 2022-01-19 13:05 | PM.IMPN ---
Progress Note: A&P Assessment and Plan (1) Syncope: Code(s): R55 - Syncope and collapse Status: Acute Assessment and Plan: Initial history sounds to be consistent with vasovagal syncope Reported that her found her on the ground and she was out for approximately 30 seconds. He noted that she was shaking in both upper extremities. Patient denies hitting her head. Denies any other injuries. = Telemetry reviewed showing sinus bradycardia with heart rate ranging from 40-50s. EKG reviewed which showed sinus bradycardia with right bundle branch block Head CT with no acute intracranial process with evidence of moderate diffuse volume loss consistent with chronic small-vessel disease Cervical spine CT with mild spondylosis, no acute findings Carotid Doppler with <50% stenosis of bilateral internal carotid arteries Orthostatic blood pressures negative initially but on repeat yesterday evening had 21 point drop in systolic BP Will proceed with EEG given reports of upper extremity tremors Echocardiogram with normal EF 65-70%, grade II diastolic dysfunction, no significant valvular disease Appreciate PT/OT eval Fall precautions implemented (2) Symptomatic bradycardia: Code(s): R00.1 - Bradycardia, unspecified Status: Acute Assessment and Plan: Telemetry reviewed with bradycardia ranging 40-50s Possibly contributing to syncope. notes 2 prior episodes of syncope over the past several months notes he monitors patients heart rate at home and frequently runs in the 40s She has been evaluated by a wall washer, Dr. Metcalf, at [place] sometime over the past year and did have a groundwater monitoring technician at one point but no follow up. Her would like her to be evaluated by a wall washer during her admission and will proceed with consultation in light of symptomatic bradycardia. Appreciate recommendations Continue to monitor on telemetry EKG reviewed. (3) Orthostatic hypotension: Code(s): I95.1 - Orthostatic hypotension Status: Acute Assessment and Plan: As above, noted to have 21 point drop in systolic BP from sitting to standing She was rehydrated with IV fluids and appears euvolemic on exam BRIAN hose Continue to monitor BP trends Fall precautions Will hold amlodipine as BP this morning was soft at 110/48 (4) Hypertension: Code(s): I10 - Essential (primary) hypertension Status: Acute Assessment and Plan: BP soft today and patient orthostatic Hold amlodipine Appreciate cardiology recommendations regarding this (5) Dementia: Code(s): F03.90 - Unspecified dementia without behavioral disturbance Status: Acute Assessment and Plan: Patient is A&O to self today. Continue memantine Hold donepezil as this may contribute to bradycardia, heart block, syncope Subjective Date/time seen: 01/19/22 13:05 Interval history: Date of service: 01/19/2022 Yomaira June is an 81-year-old female with a history of hypertension, hyperlipidemia, dementia who is seen in follow-up for syncopal episode. She is a poor historian due to her dementia. I am not able to obtain a reliable history. This morning she did not know she was in the hospital. She was oriented to self only. I returned to see the patient when her arrived so that I could provide updates to him and answer his questions. Review of Systems Review of Systems: All systems reviewed & are unremarkable except as noted in HPI and below Exam Narrative: General: Well-nourished, well-appearing 81 year-old female, sitting in a chair, comfortable, NARD Neuro: awake, alert and oriented to self, speech clear, no focal neuro deficits noted, exhibits forgetfulness in conversation HEENMT: normocephalic, atraumatic, EOMI, sclerae anicteric, moist oral mucosa Respiratory: clear to auscultation bilaterally, nonlabored breathing Cardio: regular rate, re
--- NOTE | 2022-01-19 18:08 | PM.CNCAR ---
Assessment and Plan Additional Plan 81-year-old lady with sinus bradycardia who has been falling several times in the last year. Is not clear to me if she is having syncopal episodes or not. She has seen a business relationship manager elsewhere with [facility] where she receives her medical care in general. They did not find any other significant cardiac pathology according to with the is telling me at this point. It sounds like they had her wear a outpatient rhythm monitor of some sort. The patient has not had any arrhythmias since being hospitalized here for couple of days and I do not believe needs to be hospitalized any longer in this setting. She has follow-up scheduled with her prior PCP as well as her business relationship manager and can see them for further monitoring of this if that is felt to be necessary. At this time I believe she can be discharged from my perspective. Tony Galo MD [facility] History of Present Illness History of Present Illness Consult date/time: 01/19/22 18:08 Consult reason: Other (Bradycardia) Reason For Visit: Syncope Narrative: This is an 81-year-old woman I am seeing this evening at the request of the hospitalist because of sinus bradycardia. The patient is unknown to me prior to this consultation. Apparently she has physicians in the [facility] system both primary care and business relationship manager to see [place]. The patient was brought here to the hospital a couple of days ago by her after falling in their home for further evaluation. The patient has dementia/memory difficulty and has no ability to provide immediate history. The however is fortunately in the room and provides an excellent history. He states that he was in his home with his in Saturday evening. The patient was in the kitchen and she was in the bathroom. He was preparing a meal and he could hear her fall in the bathroom. He is not clear if she fell off the toilet or from standing at the sink. He came in and she was on the floor she was not unresponsive she was complaining after falling of some pain and called the they brought her here for further evaluation. The states the patient has had 2 similar episodes in the last year. She has therefore fall on abruptly 3 times and it is not clear from taking the history whether she is having syncopal symptoms with loss of consciousness or simply falling. One of the episodes that occurred prior to this incident was occurring while he was witnessing at and she was standing at the kitchen sink and was beginning to fall with while Cameron legs and he help her ease her to the floor. She did not lose consciousness on that occasion. She was referred by her PCP to see Dr. Metcalf for cardiology evaluation he found her to be bradycardic but no other cardiac pathology was identified according to the and no further treatment such as a pacemaker was felt to be indicated at that time. The patient's home medical regimen consists of amlodipine, atorvastatin, Aricept gabapentin and omeprazole. He is not taking any beta-blockers or AV node blocking agent. The patient's 12 lead electrocardiogram shows sinus rhythm with normal MT interval and right bundle branch block. Electrocardiogram done here a couple of years ago in the chart is unchanged. Echocardiogram done during this admission appears to show normal left ventricular systolic function and no significant valvular disease. Review of Systems Constitutional: Constitutional: Reports fatigue and Reports lethargy Eyes: Eyes: Reports no additional eye complaints ENT: Reports system reviewed and no additional complaints, except as documented Cardiovascular: Cardiovascular: Reports as per HPI Respiratory: Respiratory: Reports no additional respiratory complaints Gastrointestinal: Gastrointestinal: Reports no additional gastrointestinal complaints Musculoskeletal: Musculoskeletal: Reports no additional musculoskeletal complaints Integ
[2022-01-19] MEDS: PRIMIDONE 50 MG TABLET PO (20:26)
[2022-01-20] VITALS: PULSE 53
[2022-01-20 04:00] VITALS: PULSE 48
[2022-01-20 05:39] VITALS: BP 138/62; PULSE 67; RESP 14; TEMP 36.5; O2SAT 94
[2022-01-20 08:00] VITALS: PULSE 45; PULSE 54; RESP 16; O2SAT 98
[2022-01-20 08:17] VITALS: BP 139/74; PULSE 54; RESP 16; TEMP 36.8; O2SAT 98
[2022-01-20] MEDS: CHOLECALCIFEROL 1,000 UNITS TABLET 2000 UNITS PO (08:19)
[2022-01-20] MEDS: ASPIRIN 81 MG ENTERIC TABLET PO (08:19)
[2022-01-20] MEDS: GABAPENTIN 100 MG CAPSULE PO (08:19)
[2022-01-20] MEDS: ESCITALOPRAM OXALATE 10 MG TABLET PO (08:19)
[2022-01-20] MEDS: MULTIVITAMINS THERAPEUTIC TAB (*BKC) 1 TABLET PO (08:19)
[2022-01-20] MEDS: polyethylene glycoL 3350 17 GM POWD.PACK PO (08:19)
[2022-01-20] MEDS: ATORVASTATIN 20 MG TABLET PO (08:19)
[2022-01-20] MEDS: MEMANTINE HCL XR 7 MG CAP PO (08:19)
[2022-01-20] MEDS: DOCUSATE SODIUM 100 MG CAPSULE PO (08:19)
--- NOTE | 2022-01-20 08:45 | PM.PNCARD ---
Progress Note: A&P Assessment and Plan (1) Hypertension: Code(s): I10 - Essential (primary) hypertension Status: Acute Assessment and Plan: Reasonably controlled (2) Syncope: Code(s): R55 - Syncope and collapse Status: Acute Assessment and Plan: Uncertain if she has true syncope or not. No obvious etiology found here at [place]. (3) Dementia: Code(s): F03.90 - Unspecified dementia without behavioral disturbance Status: Acute Assessment and Plan: Significant Additional Plan Follow-up with her primary cardiologists at [facility] No further inpatient workup needed Subjective Date/time seen: 01/20/22 08:45 Interval history: Yomaira June is an 81-year-old female with a history of hypertension, hyperlipidemia, dementia who is seen in follow-up for syncopal episode. She is a poor historian due to her dementia. I am not able to obtain a reliable history. This morning she did not know she was in the hospital. She was oriented to self only. Date of service 01/20/2022: No significant arrhythmia noted. Feels okay today. She denies any chest pain or shortness of breath Review of Systems Constitutional: Constitutional: Reports fatigue and Reports lethargy Eyes: Eyes: Reports no additional eye complaints ENT: Reports system reviewed and no additional complaints, except as documented Cardiovascular: Cardiovascular: Reports as per HPI Respiratory: Respiratory: Reports no additional respiratory complaints Gastrointestinal: Gastrointestinal: Reports no additional gastrointestinal complaints Musculoskeletal: Musculoskeletal: Reports no additional musculoskeletal complaints Integumentary/Breasts: Skin/Breast: Reports system reviewed and no additional complaints, except as docu Neurologic: Reports as per HPI Endocrine: Endocrine: Reports no additional endocrine complaints and Reports fatigue Hematologic/Lymphatic: Hematologic/Lymphatic: Reports no additional hematologic/lymphatic complaints Allergic/Immunologic: Allergic/Immunologic: Reports no additional allergic/immunologic complaints Exam Const: General: comfortable and no acute distress Other: Pleasant elderly demented lady comfortable and cooperative HENMT: Mouth: Yes moist mucous membranes Eyes: Sclera: sclerae normal Pupils: Equal, round and reactive pupils present Neck: Neck: supple and no JVD Resp: Effort & Inspection: normal respiratory effort Auscultation: clear to auscultation bilaterally Cardio: Rate: regular rate and bradycardic Rhythm: regular rhythm Other: No murmur no gallop GI: Auscultation: normal bowel sounds Skin: General skin exam: normal color Neuro: Cranial nerves: Yes Equal, round and reactive pupils present Cognition (Neuro): normal cognition Extrem: General: normal to inspection Objective Data Vital Signs Vital Signs: Vital Signs - 24 hr 01/19/22 12:00 01/19/22 14:00 01/19/22 16:00 Temperature 36.2 C L Pulse Rate 55 L 50 L 53 L Respiratory Rate 16 Blood Pressure 129/58 L Pulse Oximetry 97 01/19/22 20:00 01/19/22 21:09 01/19/22 21:21 Temperature 36.8 C Pulse Rate 55 L 48 L Respiratory Rate 16 Blood Pressure 108/52 L Pulse Oximetry 95 96 01/20/22 00:00 01/20/22 04:00 01/20/22 05:39 Temperature 36.5 C Pulse Rate 53 L 48 L 67 Respiratory Rate 14 Blood Pressure 138/62 Pulse Oximetry 94 01/20/22 08:00 01/20/22 08:17 Temperature 36.8 C Pulse Rate 54 L 54 L Respiratory Rate 16 16 Blood Pressure 139/74 Pulse Oximetry 98 98 Intake/Output Intake/Output: Intake & Output 01/17/22 01/18/22 01/19/22 01/20/22 23:59 23:59 23:59 23:59 Intake Total 1000 1850 910 520 Output Total 1360 Balance 1000 490 910 520 Meds/Results Medications: Active Medications Generic Name Dose Route Start Last Admin Trade Name Freq PRN Reason Stop Dose Admin Acetaminophen 500 mg 01/18/22 03:39 Acetaminophen 500 Mg Tablet PO
[2022-01-20 12:00] VITALS: PULSE 52
--- NOTE | 2022-01-21 15:22 | P.DS_ITS ---
DS: Admitting Diagnosis Discharge Date 01/20/22 Admitting Diagnosis Syncope DS: Discharge Diagnosis Discharge Diagnosis (1) Syncope: Code(s): R55 - Syncope and collapse Status: Acute Assessment and Plan: Initial history sounds to be consistent with vasovagal syncope * Reported that her found her on the ground and she was out for approximately 30 seconds. He noted that she was shaking in both upper extremities. * Patient denies hitting her head. Denies any other injuries. * Telemetry reviewed showing sinus bradycardia with heart rate ranging from 40- 50s. * EKG reviewed which showed sinus bradycardia with right bundle branch block * Head CT with no acute intracranial process with evidence of moderate diffuse volume loss consistent with chronic small-vessel disease * Cervical spine CT with mild spondylosis, no acute findings * Carotid Doppler with <50% stenosis of bilateral internal carotid arteries * Orthostatic blood pressures negative initially but on repeat had 21 point drop in systolic BP * EEG ordered due to reports of tremors in upper extremities. Follow up outpatient to obtain. * Echocardiogram with normal EF 65-70%, grade II diastolic dysfunction, no significant valvular disease * Participated in PT/OT during admission * Fall precautions implemented (2) Symptomatic bradycardia: Code(s): R00.1 - Bradycardia, unspecified Status: Acute Assessment and Plan: Telemetry reviewed with bradycardia ranging 40-50s * Possibly contributing to syncope. notes 2 prior episodes of syncope over the past several months * notes he monitors patients heart rate at home and frequently runs in the 40s * She has been evaluated by a manufacturing project manager, Dr. Metcalf, at [place] sometime over the past year and did have a surveyor oil well directional at one point but no follow up. * Seen in consultation by cardiology during admission. No further evaluation required. She should follow up with her manufacturing project manager, Dr. Metcalf, as an outpatient. * EKG reviewed. (3) Orthostatic hypotension: Code(s): I95.1 - Orthostatic hypotension Status: Acute Assessment and Plan: As above, noted to have 21 point drop in systolic BP from sitting to standing * She was rehydrated with IV fluids and appeared euvolemic on exam * BRIAN hose applied * Subsequent orthostatics negative * Fall precautions implemented * Hold amlodipine. BP controlled off this medication (4) Hypertension: Code(s): I10 - Essential (primary) hypertension Status: Acute Assessment and Plan: Amlodipine held. Please see above. (5) Dementia: Code(s): F03.90 - Unspecified dementia without behavioral disturbance Status: Acute Assessment and Plan: Patient is A&O to self. * Continue memantine * Donepezil was held as this may contribute to bradycardia, heart block, syncope DS: Summary Hospital Course Hospital Course: Date of admission: 01/17/2022 Date of discharge: 01/21/2022 Yomaira June is an 81-year-old female with a history of hypertension, hyperlipidemia, dementia who presented to the emergency department on 01/17/2022 from home after a syncopal episode. Patient stated that she ?wilted and was found by her who brought her to the emergency department. She was admitted to the hospitalist service for further evaluation and management and was seen in consultation by cardiology. Please see above for further details. Patient was feeling back to her usual state of health. She was deter
--- NOTE | 2022-01-21 15:22 | PM.DS ---
DS: Admitting Diagnosis Discharge Date 01/20/22 Admitting Diagnosis Syncope DS: Discharge Diagnosis Discharge Diagnosis (1) Syncope: Code(s): R55 - Syncope and collapse Status: Acute Assessment and Plan: Initial history sounds to be consistent with vasovagal syncope Reported that her found her on the ground and she was out for approximately 30 seconds. He noted that she was shaking in both upper extremities. Patient denies hitting her head. Denies any other injuries. Telemetry reviewed showing sinus bradycardia with heart rate ranging from 40-50s. EKG reviewed which showed sinus bradycardia with right bundle branch block Head CT with no acute intracranial process with evidence of moderate diffuse volume loss consistent with chronic small-vessel disease Cervical spine CT with mild spondylosis, no acute findings Carotid Doppler with <50% stenosis of bilateral internal carotid arteries Orthostatic blood pressures negative initially but on repeat had 21 point drop in systolic BP EEG ordered due to reports of tremors in upper extremities. Follow up outpatient to obtain. Echocardiogram with normal EF 65-70%, grade II diastolic dysfunction, no significant valvular disease Participated in PT/OT during admission Fall precautions implemented (2) Symptomatic bradycardia: Code(s): R00.1 - Bradycardia, unspecified Status: Acute Assessment and Plan: Telemetry reviewed with bradycardia ranging 40-50s Possibly contributing to syncope. notes 2 prior episodes of syncope over the past several months notes he monitors patients heart rate at home and frequently runs in the 40s She has been evaluated by a gun fertilizer, Dr. Metcalf, at [place] sometime over the past year and did have a personnel monitor at one point but no follow up. Seen in consultation by cardiology during admission. No further evaluation required. She should follow up with her gun fertilizer, Dr. Metcalf, as an outpatient. EKG reviewed. (3) Orthostatic hypotension: Code(s): I95.1 - Orthostatic hypotension Status: Acute Assessment and Plan: As above, noted to have 21 point drop in systolic BP from sitting to standing She was rehydrated with IV fluids and appeared euvolemic on exam BRIAN hose applied Subsequent orthostatics negative Fall precautions implemented Hold amlodipine. BP controlled off this medication (4) Hypertension: Code(s): I10 - Essential (primary) hypertension Status: Acute Assessment and Plan: Amlodipine held. Please see above. (5) Dementia: Code(s): F03.90 - Unspecified dementia without behavioral disturbance Status: Acute Assessment and Plan: Patient is A&O to self. Continue memantine Donepezil was held as this may contribute to bradycardia, heart block, syncope DS: Summary Hospital Course Hospital Course: Date of admission: 01/17/2022 Date of discharge: 01/21/2022 Yomaira June is an 81-year-old female with a history of hypertension, hyperlipidemia, dementia who presented to the emergency department on 01/17/2022 from home after a syncopal episode. Patient stated that she ?wilted and was found by her who brought her to the emergency department. She was admitted to the hospitalist service for further evaluation and management and was seen in consultation by cardiology. Please see above for further details. Patient was feeling back to her usual state of health. She was determined to no longer require inpatient care and felt to be stable for discharge. She will follow up with her PCP and gun fertilizer as an outpatient. She was discharged in hemodynamically stable condition on 01/21/2022. Her was present during the patients hospitalization and I had several lengthy discussions with him regarding the plan of care. All of his questions were answered and he felt comfortable with plan. S
== END 2022-01-20 13:25 | disposition home or self-care (01) | DRG 312 ==
LOC: ANHED 21:07 → ANH2MED 01-18 00:11
PROVIDERS: Admitting Provider Internal Medicine; Emergency Provider Emergency Medicine; PCP Student in an Organized Health Care Education/Training Program; Visit Provider Physician Assistant
DX: R55 Syncope and collapse (principal); I10 Essential (primary) hypertension; Z20.822 Contact with and (suspected) exposure to COVID-19; F03.90 Unspecified dementia, unspecified severity, without behavioral disturbance, psychotic disturbance, mood disturbance, and anxiety; I45.10 Unspecified right bundle-branch block; R00.1 Bradycardia, unspecified; E78.5 Hyperlipidemia, unspecified; Z90.710 Acquired absence of both cervix and uterus; Z79.82 Long term (current) use of aspirin
CPT/HCPCS: 36415; 51701; 70450; 71045; 72125; 80048; 80053; 81001; 84443; 84484; 85014; 85018; 85025; 85055; 85610; 85730; 93005; 93306; 93880; 96360; 96361; 97110; 97161; 97165; 99285; A9270; C9803; G0378; J7030; U0003; U0005

== ENCOUNTER 2023-01-31 13:38 | Emergency (ER) | payer OTHER, SELFPAY ==
--- NOTE | ~2023-01-31 | XR_ITS ---
XR shoulder LT min 2V 01/31/2023 16:30 Indication: Left shoulder pain Procedure: 4 views left shoulder Comparison: No prior studies for comparison. Findings: There is a comminuted, nondisplaced distal clavicular fracture. Acromioclavicular joint int act. Osteopenia. Impression: 1: Comminuted, nondisplaced distal left clavicular fracture. Reviewed, dictated and finalized at location L. HAT ENGINEER Impression: 1: Comminuted, nondisplaced distal left clavicular fracture.
[2023-01-31 14:10] VITALS: BP 156/70; PULSE 60; RESP 16; TEMP 36.6; O2SAT 97
--- NOTE | 2023-01-31 16:04 | ED.GENADULT ---
HPI - General Adult General Chief complaint: Fall Stated complaint: fall 2 days ago. injury to left shoulder/chest Time Seen by Provider: 01/31/23 14:59 History of Present Illness HPI narrative: 82-year-old female presented to the emergency department for evaluation of left shoulder pain. Family states that they noticed the left shoulder bruising when they were helping get her dressed. Patient's states that the patient did have a fall from the toilet a few days ago and struck the wall with her left shoulder. Patient did have some decreased mobility of left shoulder with family. Patient denies striking head denies any loss of consciousness. Patient denies any other pain than left shoulder pain. Family feels the patient is at her current mental baseline at this time. Patient does have a significant history of dementia. Family was important in helping to provide the history due to the patient's dementia. Related Data Home Medications Medication Instructions Recorded Confirmed gabapentin 100 mg capsule 100 mg PO TID 01/27/20 03/22/22 aspirin 81 mg tablet,delayed 81 mg PO EVERY OTHER DAY 09/13/20 03/22/22 release escitalopram oxalate 10 mg tablet 10 mg PO DAILY 09/13/20 03/22/22 primidone 50 mg tablet 50 mg PO HS 09/13/20 03/22/22 acetaminophen 500 mg tablet 500 mg PO Q6H PRN Pain 06/20/21 03/22/22 alprazolam 0.5 mg tablet 0.5 mg PO BID PRN Insomnia 06/20/21 03/22/22 atorvastatin 20 mg tablet 20 mg PO DAILY 06/20/21 03/22/22 calcium 1 tablet PO BID 06/20/21 03/22/22 carbonate,citrate-magnesium oxide 200 mg calcium-50 mg tablet docusate sodium 100 mg capsule 100 mg PO DAILY 06/20/21 03/22/22 memantine 7 mg capsule 7 mg PO DAILY 06/20/21 03/22/22 sprinkle,extended release 24hr omega-3 fatty acids 500 mg capsule 500 mg PO DAILY 06/20/21 03/22/22 melatonin 5 mg tablet 5 mg PO QHS 03/22/22 03/22/22 omeprazole 40 mg capsule,delayed 40 mg PO DAILY 03/22/22 03/22/22 release ondansetron 4 mg disintegrating 4 mg PO Q8H 03/22/22 03/22/22 tablet vit C 250 mg-vit E 200 unit-zinc 1 cap PO DAILY 03/22/22 03/22/22 ox 12.5 [id number]-crcutn-zeax capsule (ICaps AREDS2) Allergies Allergy/AdvReac Type Severity Reaction Status Date / Time No Known Allergies Allergy Unknown Verified 01/31/23 14:22 Review of Systems Review of Systems: CONSTITUTIONAL: Denies fever, chills, or sweats. EYES: Denies visual changes, redness, or discharge. ENT: Denies rhinorrhea, congestion, sore throat, or otalgia. CARDIOVASCULAR: Denies chest pain, palpitations, or edema. RESPIRATORY: Denies cough or dyspnea. GASTROINTESTINAL: Denies abdominal pain, nausea, vomiting, or diarrhea. GENITOURINARY: Denies dysuria or hematuria. SKIN: Denies rash or itching. MUSCULOSKELETAL: See HPI NEUROLOGIC: Denies headache, numbness, or weakness. All systems reviewed & are unremarkable except as noted in HPI and below PMFSH Past Medical History Medical History High cholesterol Hypertension Surgical History Surgical History History of elbow surgery Right History of hysterectomy Family History Family History Sibling Cerebrovascular accident, Onset Age: 77 Patient's sister is Mother Patient's mother is , Onset Age: 83 Father Patient's father is , Onset Age: 101 Social History Social History Second hand tobacco smoke exposure: No Alcohol intake: never Substance use: never Living arrangements: with family Spiritual care concerns: No Exam Narrative: APPEARANCE: Well appearing, no pain, no distress, well-nourished. HEAD: normocephalic, atraumatic. EYES: PERRLA/EOMI, conjunctivae clear. NOSE: Normal no drainage NECK: Supple. No adenopathy, no masses. RESPIRATORY: [place]
[2023-01-31 17:30] VITALS: BP 126/64; PULSE 60; RESP 16; TEMP 36.5; O2SAT 100
== END 2023-01-31 18:05 | disposition home or self-care (01) ==
PROVIDERS: Emergency Provider Emergency Medicine; PCP Student in an Organized Health Care Education/Training Program
DX: S42.035A Nondisplaced fracture of lateral end of left clavicle, initial encounter for closed fracture (principal); W18.11XA Fall from or off toilet without subsequent striking against object, initial encounter; F03.90 Unspecified dementia, unspecified severity, without behavioral disturbance, psychotic disturbance, mood disturbance, and anxiety; Z79.82 Long term (current) use of aspirin; I10 Essential (primary) hypertension; E78.00 Pure hypercholesterolemia, unspecified
CPT/HCPCS: 73030; 99283

== ENCOUNTER 2023-11-22 10:22 | Observation (INO) | payer OTHER, SELFPAY ==
[2023-11-22] VITALS (37 sets, daily range): BP systolic 86–169; BP diastolic 56–101; PULSE 60–122; RESP 10–22; TEMP 36.2–36.3; O2SAT 93–100; BMI 20.3
--- NOTE | ~2023-11-22 | XR_ITS ---
EXAMINATION: XR hip BI 2V w AP pelvis DATE: 11/22/2023 11:51 INDICATION: Hip pain TECHNIQUE: AP view the pelvis and two views of each hip were obtained. COMPARISON: 09/25/2013 FINDINGS: There is a minimally displaced fracture of the greater trochanter of the left femur. There is a questionable fracture plane extending into the intertrochanteric region of the femoral neck. No additional fracture is identified. There is mild osteoarthritis of the hips. The femoral heads are we ll-seated in their acetabula. There are phleboliths of the pelvis. There is severe spondylosis of the lower lumbar spine. IMPRESSION: 1. Greater trochanter fracture of the left femur with possible fracture plane in the intertrochanteri c region. Consider further evaluation with CT. Reviewed, dictated and finalized at location B. ENSATION PROGRAMS MANAGER IMPRESSION: 1. Greater trochanter fracture of the left femur with possible fracture plane i n the intertrochanteric region. Consider further evaluation with CT.
--- NOTE | ~2023-11-22 | XR_ITS ---
EXAMINATION: XR chest 1V DATE: 11/22/2023 11:51 INDICATION: Weakness post fall TECHNIQUE: frontal and lateral views of the chest were obtained. COMPARISON: Chest radiograph dated 01/17/2022 FINDINGS: 1.5 cm nodular opacity at the lateral right midlung zone. Mild streaky atelectasis at the bilateral l joel bases. No other airspace opacities, pulmonary edema, pleural effusion or pneumothorax. The cardio mediastinal silhouette is normal. Dual lead pacemaker seen with leads projecting over the expected lo cations of the right atrium and right ventricle. Moderate spondylosis at the visualized upper lumbar spine. IMPRESSION: 1. 1.5 cm nodular opacity at the lateral right midlung zone which raises concern for malignancy. Jose R mmend further evaluation with chest CT, preferably with contrast. Reviewed, dictated and finalized at location A. TAL PROJECT ENGINEER IMPRESSION: 1. 1.5 cm nodular opacity at the lateral right midlung zone which raises concer n for malignancy. Recommend further evaluation with chest CT, preferably with c ontrast.
--- NOTE | ~2023-11-22 | CT_ITS ---
EXAMINATION: CT femur LT wo con DATE: 11/22/2023 13:07 INDICATION: Greater trochanter fracture on x-ray TECHNIQUE: High resolution computed tomography (CT) of the left femur was performed without intraveno us contrast. Additional sagittal and coronal reconstructions were performed. Automated exposure contr ol and iterative reconstruction technique were employed. The dose-length product was 1079.63 mGy-cm. COMPARISON: None FINDINGS: Mildly distracted avulsion fracture extends transversely across the greater trochanter with up to 5 m m separation of the posterior aspect of the fracture plane. No extension of the fracture across the w eightbearing axis of the femur. No other fractures identified. 3.6 x 2.1 cm hematoma along the cephal ad aspect of the greater trochanteric fragment. There is heterotopic ossification along the anterior facet of the greater tuberosity with prominent fatty atrophy of the left gluteus minimus muscle sugge sting sequela of chronic tear. Mild osteoarthritis at the left hip with no joint effusion. There is s ome motion artifact at the left knee. No left knee joint effusion. Multiple diverticula along the vis ualized sigmoid colon without adjacent from trace stranding to suggest diverticulitis. Bladder is nor mal. The uterus is not identified and has likely been surgically resected. No pathologically enlarged left pelvic or inguinal lymphadenopathy. IMPRESSION: 1. 5 mm proximal distraction of an avulsion fracture extending transversely across the left greater t rochanter. Reviewed, dictated and finalized at location A. ET EDGER IMPRESSION: 1. 5 mm proximal distraction of an avulsion fracture extending transversely acr oss the left greater trochanter.
--- NOTE | ~2023-11-22 | CT_ITS ---
EXAMINATION: CT brain wo con DATE: 11/22/2023 11:43 INDICATION: Dementia. Fall. TECHNIQUE: Computed tomography (CT) of the head was performed without intravenous contrast. Sagittal and coronal reconstructions were performed. The mA was adjusted according to patient size. Iterative reconstruction technique was employed. The dose-length product was 605.33 mGy-cm. COMPARISON: head CT dated 01/17/2022 FINDINGS: No actual. No acute intracranial hemorrhage, acute infarction or abnormal extra axial fluid collectio n. Symmetric dystrophic calcifications at the bilateral basal ganglia. There is mild scattered white matter hypoattenuation consistent with chronic small vessel ischemic disease. Symmetric prominence of the sulci and ventricles consistent with moderate age-appropriate diffuse cerebral volume loss. No m ass/mass effect. Changes of bilateral intraocular lens replacement. The orbits, paranasal sinuses and mastoid air cells are normal. IMPRESSION: 1. No fracture or acute intracranial process. 2. Age-related changes including moderate diffuse on loss and mild scattered white matter hypoattenua tion consistent with chronic small vessel ischemic disease. Reviewed, dictated and finalized at location A. INJECTION MOLD TECHNICIAN IMPRESSION: 1. No fracture or acute intracranial process. 2. Age-related changes including moderate diffuse on loss and mild scattered wh ite matter hypoattenuation consistent with chronic small vessel ischemic diseas e.
--- NOTE | ~2023-11-22 | XR_ITS ---
EXAMINATION: XR mandible min 4V DATE: 11/26/2023 13:15 INDICATION: Left jaw pain. Fall. TECHNIQUE: 5 views of the mandible were obtained. COMPARISON: Head CT 11/22/2023 FINDINGS: There is rightward deviation of the nasal septum. No fracture. The temporomandibular joints are normal. IMPRESSION: 1. No fracture. Reviewed, dictated and finalized at location E. TICISER IMPRESSION: 1. No fracture.
--- NOTE | ~2023-11-22 | CT_ITS ---
Clinical Indication: Abnormal chest x-ray CT Scan of the Chest with Contrast: Technique: Contiguous sections were acquired throughout the chest after intravenous administration of 75 cc of Omnipaque 350. Dose reduction technique was used on this scan by utilizing automated exposu re control and iterative reconstruction technique. The dose-length product (DLP) was 172.94 mGy-cm. Findings: There is no evidence of any significant mediastinal, hilar or axillary lymphadenopathy. There is no f illing defect in the pulmonary arterial tree to suggest pulmonary embolus. There is no evidence of ao rtic dissection or aneurysm. There is an irregular groundglass opacity peripheral the right lung measuring up to 1.9 cm in diamete r (axial image 43). There is an additional 3 mm right apical pulmonary nodule. There is mild bibasila r atelectatic change with left basilar scarring. No pleural or pericardial effusion. Images through the upper abdomen reveal no abnormalities. Impression: 1.9 cm irregular semisolid/ground glass opacity in the peripheral right upper lobe, which correlates with the radiographic finding. This is nonspecific, diagnostic considerations including focal pneumon ia or possibly neoplastic lesion such as bronchial alveolar cell carcinoma. Recommend short-term foll ow-up CT in 1-3 months after interval therapy. Tissue sampling could be considered as indicated. Additional 3 mm right apical pulmonary nodule. Reviewed, dictated and finalized at location . WORKER Impression: 1.9 cm irregular semisolid/ground glass opacity in the peripheral right upper l obe, which correlates with the radiographic finding. This is nonspecific, diagn ostic considerations including focal pneumonia or possibly neoplastic lesion bear ch as bronchial alveolar cell carcinoma. Recommend short-term follow-up CT in 1 -3 months after interval therapy. Tissue sampling could be considered as indica karlos. Additional 3 mm right apical pulmonary nodule.
--- NOTE | 2023-11-22 10:29 | ECG_ITS ---
Measurements Intervals [place] Rate: 60 P: 226 MN: 170 QRS: -23 QRSD: 138 T: -11 QT: 460 QTc: 460 Interpretive Statements ELECTRONIC ATRIAL PACEMAKER RIGHT BUNDLE BRANCH BLOCK [120+ ms QRS DURATION, UPRIGHT V1, 40+ ms S IN I/aVL/V4/V5/V6] LOW QRS VOLTAGE ABNORMAL ECG COMPARED TO ECG 01/17/2022 20:38:19 [facility] Electronically Signed On 11-22-2023 15:13:27 SENIOR EDUCATION SPECIALIST by Tony Galo M.D.
[2023-11-22 10:43] LABS: Basophils Percent Auto 0.4 % (0.2-1.2); Eosinophils Percent Auto 0.1 % (0-4.4); Hematocrit 40.4 % (37.0-47.0); Hemoglobin 12.5 g/dL (12.0-15.0); Immature Granulocyte Absolute 0.03 K/mm3 (0.00-0.031); Immature Granulocyte Percent A 0.4 % (0-0.5); Lymphocytes Absolute Auto 0.97 K/mm3 (0.9-3.2); Lymphocytes Percent Auto 11.9 % (18.3-44.2); Mean Corpuscular HGB Conc 30.9 g/dl (32-36); Mean Corpuscular Volume 97.1 fl (80-100); Mean Platelet Volume 10.6 fl (7.4-10.4); Monocytes Absolute Auto 1.1 K/mm3 (0.1-0.6); Monocytes Percent Auto 13.3 % (2.6-8.5); Neutrophils Percent Auto 73.9 % (45.5-73.1); Platelet Count Result 164 k/mm3 (150-375); Red Blood Count 4.16 M/mm3 (4.2-5.4); White Blood Count 8.1 K/mm3 (4.5-10.0)
[2023-11-22 10:53] LABS: Alanine Aminotransferase 18 U/L (6-35); Albumin Level 3.7 g/dL (3.5-5.1); Alkaline Phosphatase 81 U/L (38-126); Anion Gap 7 mmol/L (8-16); Aspartate Amino Transferase 26 U/L (14-36); Bilirubin,Total 0.5 mg/dL (0.2-1.3); Blood Urea Nitrogen 19 mg/dL (7-17); Carbon Dioxide 29 mmol/L (22-30); Chloride 107 mmol/L (98-107); Estimated CRCL calculation 40 ml/min; Estimated Glomerular Filt Rate > 60; Glucose 123 mg/dL (65-110); Potassium 4.1 mmol/L (3.4-5.0); Sodium 143 mmol/L (137-145)
--- NOTE | 2023-11-22 11:00 | ED.WEAKNESS ---
HPI - Weakness General Chief complaint: Weakness Stated complaint: weakness Time Seen by Provider: 11/22/23 10:39 Source: patient and family (daughter) Mode of arrival: EMS Limitations: dementia History of Present Illness HPI Narrative: Pt presents with weakness. Report of multiple falls. Daughter provides history given patient's dementia. Patient initially deneis any pain but states she is tired.' Does state her butt hurts. Unable to stand. Daughter states patient has fallen twice in the past 2 days. Not currently receiving nursing services in residential unit. Similarly, PT services are available but not currently utilized. She had initially been telling daughter she had pain under her arms from where her (similar age and health/cognitive concerns) helped to pick her up off the floor. Has a wheeled walker. Takes aspirin every 3 days. Denies chest pain, abdominal pain, shortness of breath, leg pain, head ache. Does not remember the fall. Family in the process of having patient and patient's move to memory care unit. Recently fractured left clavicle. Related Data Home Medications Medication Instructions Recorded Confirmed gabapentin 100 mg capsule 100 mg PO BID 01/27/20 11/27/23 aspirin 81 mg tablet,delayed 81 mg PO EVERY OTHER DAY 09/13/20 11/27/23 release primidone 50 mg tablet 50 mg PO HS 09/13/20 11/27/23 acetaminophen 500 mg tablet 500 mg PO Q6H PRN Pain 06/20/21 11/27/23 alprazolam 0.5 mg tablet 0.5 mg PO BID PRN Insomnia 06/20/21 11/27/23 atorvastatin 20 mg tablet 20 mg PO DAILY 06/20/21 11/27/23 calcium 1 tablet PO DAILY 06/20/21 11/27/23 carbonate,citrate-magnesium oxide 200 mg calcium-50 mg tablet docusate sodium 100 mg capsule 100 mg PO DAILY 06/20/21 11/27/23 memantine 7 mg capsule 7 mg PO DAILY 06/20/21 11/27/23 sprinkle,extended release 24hr melatonin 5 mg tablet 5 mg PO QHS 03/22/22 11/27/23 omeprazole 40 mg capsule,delayed 40 mg PO DAILY 03/22/22 11/27/23 release ondansetron 4 mg disintegrating 4 mg PO Q8H PRN Nausea 03/22/22 11/27/23 tablet vit C 250 mg-vit E 200 unit-zinc 1 cap PO DAILY 03/22/22 11/27/23 ox 12.5 [id number]-rzaanb-zeax capsule (ICaps AREDS2) donepezil 10 mg tablet 10 mg PO QHS 02/19/23 11/27/23 escitalopram oxalate 10 mg tablet 20 mg PO DAILY 02/19/23 11/27/23 loperamide 2 mg capsule 2 mg PO Q6H PRN Diarrhea 02/19/23 11/27/23 Allergies Allergy/AdvReac Type Severity Reaction Status Date / Time No Known Allergies Allergy Unknown Verified 11/27/23 02:44 [facility] Past Medical History Medical History (Updated 12/01/23 @ 00:10 by Elham aYn MD) Closed left clavicular fracture Distal 1/3 clavicle fx Dementia High cholesterol Hypertension Pacemaker Surgical History Surgical History History of elbow surgery Right History of hysterectomy Family History Family History Sibling Cerebrovascular accident, Onset Age: 77 Patient's sister is Mother Patient's mother is , Onset Age: 83 Father Patient's father is , Onset Age: 101 Social History Social History Smoking status: Never smoker Second hand tobacco smoke exposure: No Alcohol intake: never Drinks per week: 1 Substance use: never Substance use type: does not use Do You Feel Safe in your Home?: No Lack of Transportation: No Lack of Food: Never True Current Housing: I Have Housing Concerned About Future Housing: No Difficulty Paying Gas/Electric Bills: No Difficulty Paying for Meds: No Currently Unemployed: No Education: High School Diploma/GED Difficulty w/ Childcare or Family Care: No Living arrangements: with family Occupation/Education: retired Spiritual care concerns: No Exam Narrative: GENERAL: We
--- NOTE | 2023-11-22 11:40 | PC.NURSE ---
called lab to have CK added on to labs that were previously sent
[2023-11-22 11:51] LABS: Appearance Urine Clear (Clear); Bacteria Urine None Seen /hpf; Bilirubin Urine Negative (Negative); Blood Urine Negative (Negative); Color Urine Yellow (Yellow); Glucose Urine UA Negative (Negative); Ketones Urine Trace mg/dL (Negative); Leukocyte Esterase Ur Negative LEU/UL (Negative); Mucus Urine Present /lpf; Need Manual Microscopic Reviewed; Nitrate Urine Negative (Negative); Non Pathogenic Casts 0-2; Protein Urine Trace mg/dL (Negative); RBC Urine 0-2 /hpf (0-2); Specific Grav Ur 1.027 (1.001-1.035); Squamous Epithelial Cell Urine None seen /hpf (Few); WBC Urine 0-5 /hpf
[2023-11-22 11:54] LABS: Add Urine Microscopic? YES
[2023-11-22 12:07] LABS: Creatine Kinase 29 U/L (30-135)
[2023-11-22] MEDS: SODIUM CHLORIDE 0.9% IV 1,000 ML 999 ML IV CONT (13:09)
[2023-11-22] MEDS: MORPHINE SULFATE (*CRX) 4 MG/ML INJ IV PUSH (13:10)
[2023-11-22] MEDS: MORPHINE SULFATE (*CRX) 2 MG/ML INJ IV PUSH (18:58)
--- NOTE | 2023-11-22 20:21 | ADMGEN ---
This patient, Yomaira June, was admitted to Medical Room 246-01. Patient/family oriented to hospital policies and general routines including ID bracelet, bed and alarms, visiting hours, pain management, procedures, bathroom and other care routines, personal items, smoking policy, room service/diet, and visiting hours. Information on how to activate the Rapid Response Team has been discussed. Patient/Family are encouraged to report perceived risks to care and to ask questions if they do not understand what they are told or what they should do.
--- NOTE | 2023-11-22 20:35 | PM.IMHP ---
H&P: HPI History of Present Illness Date/Time: 11/22/23 20:35 Chief Complaint: fall Narrative: This is an 83-year-old female with past medical history significant for dementia, depression, GERD, patient lives at assisted living facility currently is in the midst of getting transferred to facility with memory care unit. Patient was unable to give any history. patient was brought today for evaluation to the emergency room after having a fall. Has been admitted for further evaluation management and treatment. T Scan of the Chest with Contrast: Technique: Contiguous sections were acquired throughout the chest after intravenous administration of 75 cc of Omnipaque 350. Dose reduction technique was used on this scan by utilizing automated exposure control and iterative reconstruction technique. The dose-length product (DLP) was 172.94 mGy-cm. Findings: There is no evidence of any significant mediastinal, hilar or axillary lymphadenopathy. There is no filling defect in the pulmonary arterial tree to suggest pulmonary embolus. There is no evidence of aortic dissection or aneurysm. There is an irregular groundglass opacity peripheral the right lung measuring up to 1.9 cm in diameter (axial image 43). There is an additional 3 mm right apical pulmonary nodule. There is mild bibasilar atelectatic change with left basilar scarring. No pleural or pericardial effusion. Images through the upper abdomen reveal no abnormalities. Impression: 1.9 cm irregular semisolid/ground glass opacity in the peripheral right upper lobe, which correlates with the radiographic finding. This is nonspecific, diagnostic considerations including focal pneumonia or possibly neoplastic lesion such as bronchial alveolar cell carcinoma. Recommend short-term follow-up CT in 1-3 months after interval therapy. Tissue sampling could be considered as indicated. Additional 3 mm right apical pulmonary nodule. EXAMINATION: XR hip BI 2V w AP pelvis DATE: 11/22/2023 11:51 INDICATION: Hip pain TECHNIQUE: AP view the pelvis and two views of each hip were obtained. COMPARISON: 09/25/2013 FINDINGS: There is a minimally displaced fracture of the greater trochanter of the left femur. There is a questionable fracture plane extending into the intertrochanteric region of the femoral neck. No additional fracture is identified. There is mild osteoarthritis of the hips. The femoral heads are well-seated in their acetabula. There are phleboliths of the pelvis. There is severe spondylosis of the lower lumbar spine. IMPRESSION: 1. Greater trochanter fracture of the left femur with possible fracture plane in the intertrochanteric region. Consider further evaluation with CT Review of Systems Review of Systems: ROS unobtainable: Yes unobtainable due to mental status (Dementia) [facility] Past Medical History Medical History (Updated 11/23/23 @ 05:48 by Chuck Moon MD) Closed left clavicular fracture Distal 1/3 clavicle fx High cholesterol Hypertension Pacemaker Surgical History Surgical History History of elbow surgery Right History of hysterectomy Family History Family History Sibling Cerebrovascular accident, Onset Age: 77 Patient's sister is Mother Patient's mother is , Onset Age: 83 Father Patient's father is , Onset Age: 101 Social History Social History Smoking status: Never smoker Second hand tobacco smoke exposure: No Alcohol intake: current Drinks per week: 1 Substance use: never Do You Feel Safe in your Home?: Yes Lack of Transportation: No Lack of Food: Never True Current Housing: I Have Housing Concerned About Future Housing: No Difficulty Paying Gas/Electric Bills: No Difficulty Paying for Meds: No Cu
[2023-11-23 04:23] VITALS: BP 144/74; PULSE 68; RESP 18; TEMP 36.4; O2SAT 98
[2023-11-23 08:15] VITALS: PULSE 93; RESP 16; O2SAT 94
[2023-11-23 09:45] VITALS: BMI 20.3
[2023-11-23] MEDS: ESCITALOPRAM OXALATE 10 MG TABLET 20 MG PO (10:26)
[2023-11-23] MEDS: ATORVASTATIN 20 MG TABLET PO (10:26)
[2023-11-23] MEDS: CHOLECALCIFEROL 1,000 UNITS TABLET 2000 UNITS PO (10:27)
[2023-11-23] MEDS: PANTOPRAZOLE 40 MG TABLET PO ×2 (10:27→19:57)
[2023-11-23] MEDS: MEMANTINE HCL XR 7 MG CAP PO (10:27)
[2023-11-23] MEDS: GABAPENTIN 100 MG CAPSULE PO ×2 (10:27→18:44)
--- NOTE | 2023-11-23 12:12 | PM.CNOR ---
Assessment and Plan Assessment and plan (1) Fracture of greater trochanter of left femur: Qualifiers: Encounter type: initial encounter Fracture type: closed Fracture alignment: nondisplaced Qualified Code(s): S72.115A - Nondisplaced fracture of greater trochanter of left femur, initial encounter for closed fracture Code(s): S72.112A - Displaced fracture of greater trochanter of left femur, initial encounter for closed fracture Status: Acute Assessment and Plan: KATLYN IS S/P FALL TO LEFT HIP AND NOW WITH A MINIMALL DISPLACED LEFT GREATER TROCHANTER FRACTURE. SURPRISINGLY SHE IS NOT IN THAT MUCH PAIN. SHE IS VERY COMFORTABLE DURING THE EXAM AND WITH AROM AND PROM OF THE HIP. XRAYS SHOW GOOD POSITION OF FRACTURE DOES THE CT SCAN. HISTORY, EXAM AND RADIOGRAPHS REVIEWED WITH THE PATIENT. REFERRING PHYSICIAN RECORDS AND IMAGES REVIEWED. CONDITION, NATURE, ETIOLOGY AND COURSE OF NATURAL HISTORY REVIEWED. CONSERVATIVE AND OPERATIVE TREATMENT OPTIONS REVIEWED WELL THE RISKS AND BENEFITS OF EACH. RECOMMEND NON OPERATIVE TREATMENT AND WBAT WITH WALKER. SHE WILL BE A GOOD CANDIDATE FOR REHAB. SHE MAY F/U IN THE OFFICE IN 8 WEEKS. History of Present Illness HPI Consult date: 11/23/23 Consult reason: fracture Chief complaint: LEFT GREATER TROCHANTER Narrative: KATLYN IS HERE FOR A FALL SHE SUSTAINED YESTERDAY WHILE WALKING WITH HER . SHE HAS HAD MULTIPLE FALLS THIS WEEK WELL. SHE FELL ON TO HER LEFT HIP. SHE WAS SEEN IN THE ED AND WAS DIAGNOSED WITH A LEFT GREATER TROCHANTER FRACTURE WITH MINIMAL DISPLACEMENT. CURRENTLY SHE HAS ONLY MILD TO MODERATE PAIN DEPENDING ON THE ACTIVITY. SHE DENIES ANY RIGHT HIP PAIN OR ANY UPPER EXTREMITY PAIN. SHE DENIES ANY NECK OR BACK PAIN. SHE DENIES ANY LOC OR CP OR SOB PMFSH Past Medical History Medical History Closed left clavicular fracture Distal 1/3 clavicle fx High cholesterol Hypertension Pacemaker Surgical History Surgical History History of elbow surgery Right History of hysterectomy Family History Family History Sibling Cerebrovascular accident, Onset Age: 77 Patient's sister is Mother Patient's mother is , Onset Age: 83 Father Patient's father is , Onset Age: 101 Social History Social History Smoking status: Never smoker Second hand tobacco smoke exposure: No Alcohol intake: current Drinks per week: 1 Substance use: never Do You Feel Safe in your Home?: Yes Lack of Transportation: No Lack of Food: Never True Current Housing: I Have Housing Concerned About Future Housing: No Difficulty Paying Gas/Electric Bills: No Difficulty Paying for Meds: No Currently Unemployed: No Education: High School Diploma/GED Difficulty w/ Childcare or Family Care: No Living arrangements: with family Occupation/Education: retired Spiritual care concerns: No Meds Home Medications and Allergies Home Medications Medication Instructions Recorded Confirmed Type cholecalciferol (vitamin D3) 50 2,000 unit PO DAILY #30 tabs 10/07/19 11/22/23 Rx mcg (2,000 unit) tablet gabapentin 100 mg capsule 100 mg PO BID 01/27/20 11/22/23 History aspirin 81 mg tablet,delayed 81 mg PO EVERY OTHER DAY 09/13/20 11/22/23 History release primidone 50 mg tablet 50 mg PO HS 09/13/20 11/22/23 History acetaminophen 500 mg tablet 500 mg PO Q6H PRN Pain 06/20/21 11/22/23 History alprazolam 0.5 mg tablet 0.5 mg PO BID PRN Insomnia 06/20/21 11/22/23 History atorvastatin 20 mg tablet 20 mg PO DAILY 06/20/21 11/22/23 History calcium 1 tablet PO DAILY 06/20/21 11/22/23 History carbonate,citrate-magnesium oxide 200 mg calcium-50 mg tablet docusate sodiu
--- NOTE | 2023-11-23 13:13 | PM.IMPN ---
Progress Note: A&P Assessment and Plan (1) Hip fracture: Code(s): S72.009A - Fracture of unspecified part of neck of unspecified femur, initial encounter for closed fracture Status: Acute Assessment and Plan: Hip XR: Greater trochanter fracture of the left femur with possible fracture plane in the intertrochanteric region. Femur CT: 5 mm proximal distraction of an avulsion fracture extending transversely across the left greater trochanter. ortho consulted - recommend non-operative treatment, WBAT with walker and f/u in 8 weeks Supportive care - pain controlled pt/ot for d/c planning likely to rehab facility (2) Closed left clavicular fracture: Qualifiers: Encounter type: subsequent encounter Clavicle location: lateral end Fracture alignment: displaced Fracture healing: with routine healing Qualified Code(s): S42.032D - Displaced fracture of lateral end of left clavicle, subsequent encounter for fracture with routine healing Code(s): S42.002A - Fracture of unspecified part of left clavicle, initial encounter for closed fracture Status: Acute Assessment and Plan: previous fracture Supportive care (3) Orthostatic hypotension: Code(s): I95.1 - Orthostatic hypotension Status: Resolved Assessment and Plan: Resolved w/ fluids (4) Symptomatic bradycardia: Code(s): R00.1 - Bradycardia, unspecified Status: Chronic Assessment and Plan: Electronic pacemaker in place (5) Dementia: Code(s): F03.90 - Unspecified dementia, unspecified severity, without behavioral disturbance, psychotic disturbance, mood disturbance, and anxiety Status: Chronic Assessment and Plan: Continue memantine and donepezil planned to go to memory care at [facility] after [place] Subjective Date/time seen: 11/23/23 13:13 Interval history: Patient is a 83 YO female laying in her hospital bed in no distress. She is comfortable without movement, and currently denies pain although she is minimally verbal and a poor historian due to her dementia. Daughter at bedside who provides additional information. She has had 3 falls within the last week. Both the patient and her live at [facility] and had planned to be transferred to memory care after [place]. Ortho consulted and will proceed with medical management, pain control, PT for eval and plan for rehab placement at d/c. Review of Systems Review of Systems: ROS unobtainable: Yes unobtainable due to mental status (Dementia) Exam Narrative: GENERAL: Well-appearing, well-nourished, and in no acute distress. HEAD: Normocephalic, atraumatic. EYES: EOMI, PERRLA NECK: Supple. RESP: Lungs clear to auscultation. No respiratory distress. HEART: RRR, no murmurs. ABDOMEN: Soft, nondistended. Non-tender. BS present. EXTREMITIES: decreased ROM range of motion left leg. No edema. SKIN: Warm, dry, no rash. NEURO: No focal deficits. Alert and oriented x3. PSYCH: Normal mood and affect. Objective Data Vital Signs Vital Signs: Vital Signs - 24 hr 11/22/23 13:27 11/22/23 13:30 11/22/23 13:45 Temperature Pulse Rate 64 65 61 Respiratory Rate 14 14 14 Blood Pressure Pulse Oximetry 93 93 11/22/23 14:04 11/22/23 14:15 11/22/23 14:30 Temperature Pulse Rate 60 60 60 Respiratory Rate 15 13 17 Blood Pressure Pulse Oximetry 97 96 96 11/22/23 14:47 11/22/23 15:00 11/22/23 15:23 Temperature Pulse Rate 60 60 60 Respiratory Rate 16 15 20 Blood Pressure Pulse Oximetry 95 96 96 11/22/23 15:30 11/22/23 15:32 11/22/23 16:17 Temperature Pulse Rate 61 61 60 Respiratory Rate 15 22 H 16 Blood Pressure 131/56 L 141/63 H Pulse Oximetry 94 94 97 11/22/23 17:38 11/22/23 17:46 11/22/23 17:47 Temperature Pulse Rate 62 63 64 Respiratory Rate 14 17 16 Blood Pressure 140/61 Pulse Oximetry 11/22/23 18:08 11/22/23 18:32 11/22/23 19:15 Tempera
--- NOTE | 2023-11-23 13:54 | PC.NURSE ---
attempted to call provider for new orders for PO pain management; no IV access for ordered IV pain medication ordered as patient pulled out IV, patient's family refused PO Tylenol. no response yet from provider.
[2023-11-23] MEDS: HYDROcodone/acetaminophen (*CRX) 5-325 MG TABLET 1 TAB PO ×2 (14:23→19:57)
[2023-11-23 15:45] VITALS: BP 108/58; PULSE 93; RESP 16; TEMP 36.4; O2SAT 94
[2023-11-23] MEDS: ALPRAZolam (*CRX) 0.5 MG TABLET PO (19:56)
[2023-11-23] MEDS: DONEPEZIL HCL 10 MG TABLET PO (19:56)
[2023-11-23] MEDS: MELATONIN 5 MG TABLET PO (19:57)
[2023-11-23] MEDS: PRIMIDONE 50 MG TABLET PO (19:57)
[2023-11-23 21:25] VITALS: BP 117/47; PULSE 61; RESP 16; TEMP 36.9; O2SAT 95
[2023-11-24 06:00] VITALS: BP 104/43; PULSE 60; RESP 13; TEMP 36.4; O2SAT 93
[2023-11-24 06:01] LABS: Hematocrit 37.3 % (37.0-47.0); Hemoglobin 11.7 g/dL (12.0-15.0); Mean Corpuscular HGB Conc 31.4 g/dl (32-36); Mean Corpuscular Hemoglobin 30.5 pg (26-34); Mean Corpuscular Volume 97.1 fl (80-100); Mean Platelet Volume 10.5 fl (7.4-10.4); Platelet Count Result 175 k/mm3 (150-375); Red Blood Count 3.84 M/mm3 (4.2-5.4); Red Cell Distribution Width 13.1 % (11.5-14.5); White Blood Count 5.8 K/mm3 (4.5-10.0)
[2023-11-24 06:10] LABS: Anion Gap 6 mmol/L (8-16); Blood Urea Nitrogen 21 mg/dL (7-17); Calcium 8.4 mg/dL (8.4-10.2); Carbon Dioxide 30 mmol/L (22-30); Chloride 103 mmol/L (98-107); Estimated CRCL calculation 33 ml/min; Estimated Glomerular Filt Rate 60; Glucose 115 mg/dL (65-110); Potassium 3.7 mmol/L (3.4-5.0); Sodium 139 mmol/L (137-145)
[2023-11-24] MEDS: GABAPENTIN 100 MG CAPSULE PO ×2 (10:55→18:15)
[2023-11-24] MEDS: ESCITALOPRAM OXALATE 10 MG TABLET 20 MG PO (10:55)
[2023-11-24] MEDS: PANTOPRAZOLE 40 MG TABLET PO ×2 (10:55→20:37)
[2023-11-24] MEDS: MEMANTINE HCL XR 7 MG CAP PO (10:55)
[2023-11-24] MEDS: CHOLECALCIFEROL 1,000 UNITS TABLET 2000 UNITS PO (10:55)
[2023-11-24] MEDS: ATORVASTATIN 20 MG TABLET PO (10:55)
[2023-11-24] MEDS: DOCUSATE SODIUM 100 MG CAPSULE PO (10:55)
[2023-11-24] MEDS: ACETAMINOPHEN 500 MG TABLET 1000 MG PO (11:56)
--- NOTE | 2023-11-24 13:23 | PM.IMPN ---
Progress Note: A&P Assessment and Plan (1) Hip fracture: Code(s): S72.009A - Fracture of unspecified part of neck of unspecified femur, initial encounter for closed fracture Status: Acute Assessment and Plan: Hip XR: Greater trochanter fracture of the left femur with possible fracture plane in the intertrochanteric region. Femur CT: 5 mm proximal distraction of an avulsion fracture extending transversely across the left greater trochanter. ortho consulted - recommend non-operative treatment, WBAT with walker and f/u in 8 weeks Supportive care - pain controlled pt/ot for d/c planning likely to rehab facility - awaiting screening and approval at [facility] (2) Closed left clavicular fracture: Qualifiers: Encounter type: subsequent encounter Clavicle location: lateral end Fracture alignment: displaced Fracture healing: with routine healing Qualified Code(s): S42.032D - Displaced fracture of lateral end of left clavicle, subsequent encounter for fracture with routine healing Code(s): S42.002A - Fracture of unspecified part of left clavicle, initial encounter for closed fracture Status: Acute Assessment and Plan: previous fracture Supportive care (3) Orthostatic hypotension: Code(s): I95.1 - Orthostatic hypotension Status: Chronic Assessment and Plan: Resolved w/ fluids monitor closely, avoid pain medication and getting out of bed shortly after (4) Symptomatic bradycardia: Code(s): R00.1 - Bradycardia, unspecified Status: Chronic Assessment and Plan: Electronic pacemaker in place (5) Dementia: Code(s): F03.90 - Unspecified dementia, unspecified severity, without behavioral disturbance, psychotic disturbance, mood disturbance, and anxiety Status: Chronic Assessment and Plan: Continue memantine and donepezil [place] [facility] [place]time seen: 11/24/23 13:23 Interval history: Patient is sleeping soundly at time of exam. is at bedside. Ortho consulted and will proceed with medical management, pain control, PT for eval and plan for rehab placement at d/c. Awaiting placement confirmation, possibly at [facility] for rehab. Review of Systems Review of Systems: ROS unobtainable: Yes unobtainable due to mental status (Dementia) Exam Narrative: GENERAL: Well-appearing, well-nourished, and in no acute distress. HEAD: Normocephalic, atraumatic. EYES: EOMI, PERRLA NECK: Supple. RESP: Lungs clear to auscultation. No respiratory distress. HEART: RRR, no murmurs. ABDOMEN: Soft, nondistended. Non-tender. BS present. EXTREMITIES: decreased ROM range of motion left leg. No edema. SKIN: Warm, dry, no rash. NEURO: No focal deficits. PSYCH: sleeping quietly Objective Data Vital Signs Vital Signs: Vital Signs - 24 hr 11/23/23 14:46 11/23/23 15:45 11/23/23 21:25 Temperature 97.5 F L 98.5 F Pulse Rate 93 61 Respiratory Rate 16 16 Blood Pressure 108/58 L 117/47 L Pulse Oximetry 94 95 Oxygen Delivery Room Air 11/23/23 20:00 11/24/23 06:00 11/24/23 10:50 Temperature 97.6 F Pulse Rate 60 Respiratory Rate 13 Blood Pressure 104/43 L Pulse Oximetry 93 Oxygen Delivery Room Air Room Air Intake/Output Intake/Output: Intake & Output 11/21/23 11/22/23 11/23/23 11/24/23 23:59 23:59 23:59 23:59 Intake Total 1000 830 300 Output Total 150 Balance 850 830 300 Meds/Results Medications: Active Medications Generic Name Dose Route Start Last Admin Trade Name Freq PRN Reason Stop Dose Admin Acetaminophen 1,000 mg 11/23/23 16:11 11/24/23 11:56 Acetaminophen 500 Mg Tablet PO 1,000 mg Q6H PRN Administration Mild Pain (1-3) or Fever Hydrocodone Bitart/Acetaminophen 1 tab 11/23/23 13:44 11/23/23 19:57 Hydrocodone/Acetaminophen (*Crx) 5-325 Mg Tablet PO 1 tab Q6H PRN Administration Pain Ra
[2023-11-24 14:30] VITALS: BP 121/51; PULSE 60; RESP 16; TEMP 36.5; O2SAT 96
[2023-11-24 20:33] VITALS: BP 105/56; PULSE 63; RESP 16; TEMP 36.6; O2SAT 96
[2023-11-24] MEDS: DONEPEZIL HCL 10 MG TABLET PO (20:37)
[2023-11-24] MEDS: PRIMIDONE 50 MG TABLET PO (20:37)
[2023-11-24] MEDS: MELATONIN 5 MG TABLET PO (20:37)
[2023-11-25 05:17] VITALS: BP 105/50; PULSE 62; RESP 17; TEMP 36.6; O2SAT 100
[2023-11-25 05:42] LABS: Basophils Percent Auto 0.3 % (0.2-1.2); Eosinophils Absolute Auto 0.2 K/mm3 (0-0.3); Eosinophils Percent Auto 4.1 % (0-4.4); Hematocrit 38.4 % (37.0-47.0); Immature Granulocyte Absolute 0.02 K/mm3 (0.00-0.031); Immature Granulocyte Percent A 0.3 % (0-0.5); Lymphocytes Absolute Auto 1.25 K/mm3 (0.9-3.2); Lymphocytes Percent Auto 21.6 % (18.3-44.2); Mean Corpuscular HGB Conc 31.3 g/dl (32-36); Mean Corpuscular Hemoglobin 30.2 pg (26-34); Mean Corpuscular Volume 96.5 fl (80-100); Mean Platelet Volume 10.6 fl (7.4-10.4); Monocytes Absolute Auto 0.8 K/mm3 (0.1-0.6); Neutrophils Absolute Auto 3.5 K/mm3 (1.3-6.7); Neutrophils Percent Auto 59.7 % (45.5-73.1); Platelet Count Result 187 k/mm3 (150-375); Red Blood Count 3.98 M/mm3 (4.2-5.4); Red Cell Distribution Width 12.9 % (11.5-14.5); White Blood Count 5.8 K/mm3 (4.5-10.0)
[2023-11-25 05:59] LABS: Anion Gap 4 mmol/L (8-16); Blood Urea Nitrogen 21 mg/dL (7-17); Calcium 8.4 mg/dL (8.4-10.2); Carbon Dioxide 32 mmol/L (22-30); Chloride 104 mmol/L (98-107); Estimated CRCL calculation 37 ml/min; Estimated Glomerular Filt Rate > 60; Glucose 112 mg/dL (65-110); Potassium 3.9 mmol/L (3.4-5.0); Sodium 140 mmol/L (137-145)
[2023-11-25] MEDS: CHOLECALCIFEROL 1,000 UNITS TABLET 2000 UNITS PO (08:40)
[2023-11-25] MEDS: ACETAMINOPHEN 500 MG TABLET 1000 MG PO ×2 (08:41→18:15)
[2023-11-25] MEDS: GABAPENTIN 100 MG CAPSULE PO ×2 (08:41→18:21)
[2023-11-25] MEDS: PANTOPRAZOLE 40 MG TABLET PO ×2 (08:41→20:36)
[2023-11-25] MEDS: MEMANTINE HCL XR 7 MG CAP PO (08:41)
[2023-11-25] MEDS: ESCITALOPRAM OXALATE 10 MG TABLET 20 MG PO (08:41)
[2023-11-25] MEDS: ASPIRIN 81 MG ENTERIC TABLET PO (08:41)
[2023-11-25] MEDS: ATORVASTATIN 20 MG TABLET PO (08:41)
[2023-11-25] MEDS: DOCUSATE SODIUM 100 MG CAPSULE PO (08:41)
--- NOTE | 2023-11-25 10:33 | PM.IMPN ---
Progress Note: A&P Assessment and Plan (1) Hip fracture: Code(s): S72.009A - Fracture of unspecified part of neck of unspecified femur, initial encounter for closed fracture Status: Acute Assessment and Plan: Hip XR: Greater trochanter fracture of the left femur with possible fracture plane in the intertrochanteric region. Femur CT: 5 mm proximal distraction of an avulsion fracture extending transversely across the left greater trochanter. ortho consulted - recommend non-operative treatment, WBAT with walker and f/u in 8 weeks Supportive care - pain control pt/ot for d/c planning likely to rehab facility - awaiting screening and approval at [facility] (2) Closed left clavicular fracture: Qualifiers: Encounter type: subsequent encounter Clavicle location: lateral end Fracture alignment: displaced Fracture healing: with routine healing Qualified Code(s): S42.032D - Displaced fracture of lateral end of left clavicle, subsequent encounter for fracture with routine healing Code(s): S42.002A - Fracture of unspecified part of left clavicle, initial encounter for closed fracture Status: Acute Assessment and Plan: previous fracture Supportive care (3) Orthostatic hypotension: Code(s): I95.1 - Orthostatic hypotension Status: Chronic Assessment and Plan: Resolved w/ fluids monitor closely, avoid pain medication and getting out of bed shortly after (4) Symptomatic bradycardia: Code(s): R00.1 - Bradycardia, unspecified Status: Chronic Assessment and Plan: Electronic pacemaker in place (5) Dementia: Code(s): F03.90 - Unspecified dementia, unspecified severity, without behavioral disturbance, psychotic disturbance, mood disturbance, and anxiety Status: Chronic Assessment and Plan: Continue memantine and donepezil planned to go to memory care at [facility] after [place], will be evaluated for memory care prior to d/c to rehab on Saturday Subjective Date/time seen: 11/25/23 10:33 Interval history: Patient is feeling more uncomfortable this morning, but had not yet had pain medication. is at bedside, reports she had a good day yesterday. She is not in any acute distress, and responsive to my questions. Ortho consulted and will proceed with medical management, pain control, PT for eval and plan for rehab placement at d/c. Awaiting placement confirmation, possibly at [facility] for rehab. Review of Systems Review of Systems: ROS unobtainable: Yes unobtainable due to mental status (Dementia) Exam Narrative: GENERAL: Well-appearing, well-nourished, and in no acute distress. HEAD: Normocephalic, atraumatic. EYES: EOMI, PERRLA NECK: Supple. RESP: Lungs clear to auscultation. No respiratory distress. HEART: RRR, no murmurs. ABDOMEN: Soft, nondistended. Non-tender. BS present. EXTREMITIES: decreased ROM range of motion left leg. No edema. SKIN: Warm, dry, no rash. NEURO: Alert. No focal deficits. PSYCH: appropriate mood, flat affect. Objective Data Vital Signs Vital Signs: Vital Signs - 24 hr 11/24/23 10:50 11/24/23 14:30 11/24/23 20:33 Temperature 97.7 F 97.8 F Pulse Rate 60 63 Respiratory Rate 16 16 Blood Pressure 121/51 L 105/56 L Pulse Oximetry 96 96 Oxygen Delivery Room Air 11/24/23 20:40 11/25/23 05:17 Temperature 97.8 F Pulse Rate 62 Respiratory Rate 17 Blood Pressure 105/50 L Pulse Oximetry 100 Oxygen Delivery Room Air Intake/Output Intake/Output: Intake & Output 11/22/23 11/23/23 11/24/23 11/25/23 23:59 23:59 23:59 23:59 Intake Total 1000 830 540 320 Output Total 150 140 Balance 850 830 400 320 Meds/Results Medications: Active Medications Generic Name Dose Route Start Last Admin Trade Name Freq PRN Reason Stop Dose Admin Acetaminophen 1,000 mg 11/23/23 16:11 11/25/23 08:41 Acetaminophen 500 Mg Tablet PO 1,000 mg Q6H PRN Administ
[2023-11-25 14:00] VITALS: BP 141/55; PULSE 61; RESP 13; TEMP 36.3; O2SAT 95
[2023-11-25] MEDS: ALPRAZolam (*CRX) 0.5 MG TABLET PO (18:15)
[2023-11-25 20:00] VITALS: PULSE 60; RESP 18; O2SAT 98
[2023-11-25 20:05] VITALS: BP 124/48; PULSE 60; RESP 18; TEMP 36.9; O2SAT 98
[2023-11-25] MEDS: DONEPEZIL HCL 10 MG TABLET PO (20:36)
[2023-11-25] MEDS: MELATONIN 5 MG TABLET PO (20:36)
[2023-11-25] MEDS: PRIMIDONE 50 MG TABLET PO (20:36)
[2023-11-26 06:00] VITALS: BP 153/64; PULSE 63; RESP 18; TEMP 36.4; O2SAT 98
[2023-11-26] MEDS: ACETAMINOPHEN 500 MG TABLET 1000 MG PO ×2 (06:43→13:28)
[2023-11-26 06:46] LABS: Basophils Percent Auto 0.2 % (0.2-1.2); Eosinophils Absolute Auto 0.3 K/mm3 (0-0.3); Eosinophils Percent Auto 4.7 % (0-4.4); Hematocrit 38.5 % (37.0-47.0); Hemoglobin 12.1 g/dL (12.0-15.0); Immature Granulocyte Absolute 0.01 K/mm3 (0.00-0.031); Immature Granulocyte Percent A 0.2 % (0-0.5); Lymphocytes Absolute Auto 1.44 K/mm3 (0.9-3.2); Lymphocytes Percent Auto 25.2 % (18.3-44.2); Mean Corpuscular HGB Conc 31.4 g/dl (32-36); Mean Corpuscular Hemoglobin 30.3 pg (26-34); Mean Corpuscular Volume 96.5 fl (80-100); Mean Platelet Volume 10.4 fl (7.4-10.4); Monocytes Absolute Auto 0.7 K/mm3 (0.1-0.6); Monocytes Percent Auto 12.8 % (2.6-8.5); Neutrophils Absolute Auto 3.3 K/mm3 (1.3-6.7); Neutrophils Percent Auto 56.9 % (45.5-73.1); Platelet Count Result 197 k/mm3 (150-375); Red Blood Count 3.99 M/mm3 (4.2-5.4); Red Cell Distribution Width 12.6 % (11.5-14.5); White Blood Count 5.7 K/mm3 (4.5-10.0)
[2023-11-26 07:04] LABS: Anion Gap 4 mmol/L (8-16); Blood Urea Nitrogen 17 mg/dL (7-17); Calcium 8.7 mg/dL (8.4-10.2); Carbon Dioxide 31 mmol/L (22-30); Chloride 106 mmol/L (98-107); Estimated CRCL calculation 41 ml/min; Estimated Glomerular Filt Rate > 60; Glucose 101 mg/dL (65-110); Sodium 141 mmol/L (137-145)
[2023-11-26] MEDS: ATORVASTATIN 20 MG TABLET PO (08:51)
[2023-11-26] MEDS: PANTOPRAZOLE 40 MG TABLET PO (08:51)
[2023-11-26] MEDS: ESCITALOPRAM OXALATE 10 MG TABLET 20 MG PO (08:51)
[2023-11-26] MEDS: DOCUSATE SODIUM 100 MG CAPSULE PO (08:51)
[2023-11-26] MEDS: GABAPENTIN 100 MG CAPSULE PO ×2 (08:51→18:42)
[2023-11-26] MEDS: CHOLECALCIFEROL 1,000 UNITS TABLET 2000 UNITS PO (08:51)
[2023-11-26] MEDS: MEMANTINE HCL XR 7 MG CAP PO (08:51)
[2023-11-26 13:35] VITALS: BP 148/52; PULSE 60; RESP 16; TEMP 36.4; O2SAT 98
--- NOTE | 2023-11-26 13:47 | PM.DS ---
DS: Admitting Diagnosis Discharge Date 11/26/23 Admitting Diagnosis Hip fracture Closed left clavicular fracture Orthostatic hypotension Symptomatic bradycardia Dementia DS: Discharge Diagnosis Discharge Diagnosis (1) Hip fracture: Code(s): S72.009A - Fracture of unspecified part of neck of unspecified femur, initial encounter for closed fracture Status: Acute (2) Closed left clavicular fracture: Qualifiers: Encounter type: subsequent encounter Clavicle location: lateral end Fracture alignment: displaced Fracture healing: with routine healing Qualified Code(s): S42.032D - Displaced fracture of lateral end of left clavicle, subsequent encounter for fracture with routine healing Code(s): S42.002A - Fracture of unspecified part of left clavicle, initial encounter for closed fracture Status: Acute (3) Orthostatic hypotension: Code(s): I95.1 - Orthostatic hypotension Status: Chronic (4) Symptomatic bradycardia: Code(s): R00.1 - Bradycardia, unspecified Status: Chronic (5) Dementia: Code(s): F03.90 - Unspecified dementia, unspecified severity, without behavioral disturbance, psychotic disturbance, mood disturbance, and anxiety Status: Chronic DS: Summary Hospital Course Reason for hospitalization: Hip fracture Closed left clavicular fracture Orthostatic hypotension Symptomatic bradycardia Hospital Course: This is an 83-year-old female who presented to the hospital on 11/22/2023 for evaluation after a fall at her facility on the memory care unit. Workup in the hospital included a head CT which was negative for any acute intracranial process and showed age-related changes. Chest x-ray which showed a 1.5 cm nodule obesity at the lateral right midlung zone raising concern for malignancy. Hip and pelvic x-ray showing great trochanter fracture of the left femur with possible for fracture plane in the intertrochanteric region. Chest CT showing 1.9 cm irregular semi solid/ground glass obesity in the peripheral right upper lobe. Femur CT showed 5 mm proximal distraction of an avulsion fracture extending transversely across the left greater trochanter. Mandible x-ray was negative for any fracture. Ortho was consulted and recommends a non operative treatment weightbearing as tolerated with a walker. She would need rehab placement. She will need to follow up in his office in 8 weeks. Labs were unremarkable. Vital signs are stable, she is afebrile, she is on room air. She is stable for discharge to rehab facility at this time. Final diagnosis: Nondisplaced great trochanter fracture of the left femur Status at Discharge Cognitive/behavioral status at discharge: Alert oriented x3 Functional status at discharge: uses cane/walker Overall status at discharge: patient is progressing back to baseline Time Spent with Patient Time attestation: Total time spent providing and/or coordinating discharge services: Time spent: Greater than 30 minutes Exam Narrative: General: In no acute distress, well nourished Head: atraumatic, no encephalopathy Eyes: EOMI, PERRLA, sclera clear ENT: moist mucous membranes, nasal passages clear Neck: supple, no JVD, no adenopathy, trachea midline Cardiac: Normal S1 and S2. No murmur, gallops or friction rubs, peripheral pulses intact. Respiratory: Lungs clear to auscultation, no adventitious lung sounds Gastrointestinal: soft, non-distended, non-tender, normoactive bowel sounds. : voiding without difficulty. Extremities: moves all extremities well, no edema, weight-bearing as tolerated Skin: clean, dry, intact. No wounds or lesions. Neuro: Alert and oriented x4, cranial nerves intact, no neuro deficits. Psych: normal mood, normal affect, interactive DS: Data Data Completed and Pending Completed studies during hospitalization: Head CT Chest x-ray Hip/pelvis x-ray Chest CT Femur CT Mandible x-ray Pending studies at discha
[2023-11-26 15:14] LABS: SARS-CoV-2 RNA PCR Negative (Negative)
== END 2023-11-26 19:19 ==
LOC: ANHED 11:04 → ANH3MEDSUR 18:37 → ANH2MED 19:42
PROVIDERS: Nurse Practitioner; Admitting Provider Internal Medicine; Emergency Provider Student in an Organized Health Care Education/Training Program; PCP Student in an Organized Health Care Education/Training Program; Visit Provider Internal Medicine
DX: S72.115A Nondisplaced fracture of greater trochanter of left femur, initial encounter for closed fracture (principal); R68.84 Jaw pain; W19.XXXA Unspecified fall, initial encounter; R29.6 Repeated falls; S42.032D Displaced fracture of lateral end of left clavicle, subsequent encounter for fracture with routine healing; I95.1 Orthostatic hypotension; R00.1 Bradycardia, unspecified; F03.90 Unspecified dementia, unspecified severity, without behavioral disturbance, psychotic disturbance, mood disturbance, and anxiety; F32.A Depression, unspecified; Z20.822 Contact with and (suspected) exposure to COVID-19; K21.9 Gastro-esophageal reflux disease without esophagitis; G47.00 Insomnia, unspecified; E78.00 Pure hypercholesterolemia, unspecified; I10 Essential (primary) hypertension; R11.0 Nausea; R19.7 Diarrhea, unspecified; R91.8 Other nonspecific abnormal finding of lung field; Z95.0 Presence of cardiac pacemaker; R94.31 Abnormal electrocardiogram [ECG] [EKG]; F10.90 Alcohol use, unspecified, uncomplicated; Z79.1 Long term (current) use of non-steroidal anti-inflammatories (NSAID); Z79.82 Long term (current) use of aspirin; Z79.899 Other long term (current) drug therapy
CPT/HCPCS: 36415; 70110; 70450; 71045; 71260; 73521; 73700; 80048; 80053; 81001; 82550; 85025; 85027; 87635; 93005; 97110; 97161; 97166; 97530; 97535; A9270; G0378; J2270; J7030; Q9967

== ENCOUNTER 2023-11-26 21:18 | Observation (INO) | payer OTHER, SELFPAY ==
[2023-11-26] VITALS (19 sets, daily range): BP systolic 144–172; BP diastolic 54–82; PULSE 60–81; RESP 13–18; TEMP 36.5; O2SAT 96–98
[2023-11-26 22:35] LABS: Basophils Percent Auto 0.3 % (0.2-1.2); Eosinophils Absolute Auto 0.2 K/mm3 (0-0.3); Eosinophils Percent Auto 3.4 % (0-4.4); Hematocrit 40.3 % (37.0-47.0); Hemoglobin 12.5 g/dL (12.0-15.0); Immature Granulocyte Absolute 0.02 K/mm3 (0.00-0.031); Immature Granulocyte Percent A 0.3 % (0-0.5); Lymphocytes Absolute Auto 1.18 K/mm3 (0.9-3.2); Lymphocytes Percent Auto 20.3 % (18.3-44.2); Mean Corpuscular Volume 96.6 fl (80-100); Mean Platelet Volume 10.1 fl (7.4-10.4); Monocytes Absolute Auto 0.8 K/mm3 (0.1-0.6); Monocytes Percent Auto 14.1 % (2.6-8.5); Neutrophils Absolute Auto 3.6 K/mm3 (1.3-6.7); Neutrophils Percent Auto 61.6 % (45.5-73.1); Platelet Count Result 203 k/mm3 (150-375); Red Blood Count 4.17 M/mm3 (4.2-5.4); Red Cell Distribution Width 12.7 % (11.5-14.5); White Blood Count 5.8 K/mm3 (4.5-10.0)
[2023-11-26 22:48] LABS: Alanine Aminotransferase 14 U/L (6-35); Albumin Level 3.3 g/dL (3.5-5.1); Alkaline Phosphatase 103 U/L (38-126); Anion Gap 6 mmol/L (8-16); Aspartate Amino Transferase 21 U/L (14-36); Bilirubin,Total 0.3 mg/dL (0.2-1.3); Blood Urea Nitrogen 20 mg/dL (7-17); Calcium 8.4 mg/dL (8.4-10.2); Carbon Dioxide 31 mmol/L (22-30); Chloride 105 mmol/L (98-107); Estimated CRCL calculation 45 ml/min; Estimated Glomerular Filt Rate > 60; Glucose 122 mg/dL (65-110); Potassium 3.8 mmol/L (3.4-5.0); Sodium 142 mmol/L (137-145)
[2023-11-26 23:29] LABS: Appearance Urine Clear (Clear); Bilirubin Urine Negative (Negative); Blood Urine Negative (Negative); Color Urine Yellow (Yellow); Glucose Urine UA Negative (Negative); Ketones Urine Negative (Negative); Leukocyte Esterase Ur Negative LEU/UL (Negative); Nitrate Urine Negative (Negative); Protein Urine Negative (Negative); Specific Grav Ur 1.015 (1.001-1.035); Urobilinogen Urine 0.2 mg/dL (<2.0); pH Urine 7.5 (5.0-9.0)
[2023-11-26 23:36] LABS: Add Urine Microscopic? NO
--- NOTE | 2023-11-26 23:48 | ED.GENADULT ---
HPI - General Adult General Chief complaint: Unspecified Stated complaint: hip pain Time Seen by Provider: 11/26/23 21:42 History of Present Illness HPI narrative: Patient is a 83-year-old female who presents emergency department with chief complaint of inability to care for the patient. Patient was just discharged from the hospital after having a fracture of the greater trochanteric aspect of the left femur the patient has history of advanced dementia and the family was planning on going to a memory care unit. The patient was discharged to [facility] for rehab and apparently the patient was placed in a room far from the nurse's station and with a roommate and no ability to prevent her from falling out of the bed. The family was concerned that the patient could have a fall and did not feel that it was a safe environment for her to go back to. Related Data Home Medications Medication Instructions Recorded Confirmed gabapentin 100 mg capsule 100 mg PO BID 01/27/20 11/22/23 aspirin 81 mg tablet,delayed 81 mg PO EVERY OTHER DAY 09/13/20 11/22/23 release primidone 50 mg tablet 50 mg PO HS 09/13/20 11/22/23 acetaminophen 500 mg tablet 500 mg PO Q6H PRN Pain 06/20/21 11/22/23 alprazolam 0.5 mg tablet 0.5 mg PO BID PRN Insomnia 06/20/21 11/22/23 atorvastatin 20 mg tablet 20 mg PO DAILY 06/20/21 11/22/23 calcium 1 tablet PO DAILY 06/20/21 11/22/23 carbonate,citrate-magnesium oxide 200 mg calcium-50 mg tablet docusate sodium 100 mg capsule 100 mg PO DAILY 06/20/21 11/22/23 memantine 7 mg capsule 7 mg PO DAILY 06/20/21 11/22/23 sprinkle,extended release 24hr melatonin 5 mg tablet 5 mg PO QHS 03/22/22 11/22/23 omeprazole 40 mg capsule,delayed 40 mg PO DAILY 03/22/22 11/22/23 release ondansetron 4 mg disintegrating 4 mg PO Q8H PRN Nausea 03/22/22 11/22/23 tablet vit C 250 mg-vit E 200 unit-zinc 1 cap PO DAILY 03/22/22 11/22/23 ox 12.5 jn-lotwup-xpzoqj-zeax capsule (ICaps AREDS2) donepezil 10 mg tablet 10 mg PO QHS 02/19/23 11/22/23 escitalopram oxalate 10 mg tablet 20 mg PO DAILY 02/19/23 11/22/23 loperamide 2 mg capsule 2 mg PO Q6H PRN Diarrhea 02/19/23 11/22/23 Allergies Allergy/AdvReac Type Severity Reaction Status Date / Time No Known Allergies Allergy Unknown Verified 04/02/23 10:03 Review of Systems Review of Systems: A 10 system review of systems was completed on the patient and is negative except for what is stated in the HPI. Nursing and ancillary documentation was reviewed. PMFSH Past Medical History Medical History Closed left clavicular fracture Distal 1/3 clavicle fx High cholesterol Hypertension Pacemaker Surgical History Surgical History History of elbow surgery Right History of hysterectomy Family History Family History Sibling Cerebrovascular accident, Onset Age: 77 Patient's sister is Mother Patient's mother is , Onset Age: 83 Father Patient's father is , Onset Age: 101 Social History Social History Smoking status: Never smoker Second hand tobacco smoke exposure: No Alcohol intake: current Drinks per week: 1 Substance use: never Do You Feel Safe in your Home?: Yes Lack of Transportation: No Lack of Food: Never True Current Housing: I Have Housing Concerned About Future Housing: No Difficulty Paying Gas/Electric Bills: No Difficulty Paying for Meds: No Currently Unemployed: No Education: High School Diploma/GED Difficulty w/ Childcare or Family Care: No Living arrangements: with family Occupation/Education: retired Spiritual care concerns: No Exam Narrative: GENERAL: Well-appearing, well-nourished, and in no acu
[2023-11-27] VITALS (7 sets, daily range): BP systolic 121–166; BP diastolic 69–106; PULSE 59–75; RESP 14–20; TEMP 36.2–36.9; O2SAT 95–99; BMI 20.1
[2023-11-27] MEDS: ACETAMINOPHEN 500 MG TABLET 1000 MG PO (00:19)
--- NOTE | 2023-11-27 01:46 | PM.IMHP ---
H&P: HPI History of Present Illness Date/Time: 11/27/23 01:46 Chief Complaint: dementia Narrative: 83F w/ PMH advanced dementia (baseline A&Ox1), depression, GERD who is admitted for placement. The pt previously lived at assisted living facility and was in the midst of being transferred to a memory care unit. She then fell on 11/22/23, admitted to [facility] and found to have a left greater trochanter fracture. Conservative mgmt elected and she was just dc'ed yesterday on 11/26 to [facility] for rehab. Upon arrival, the daughter Shagufta who supplies history reports the room was unequipped for a patient with such advanced dementia. She had already been sliding out of bed shortly after arriving. ED workukp did not reveal new acute issues. The patient has no complaints herself and reports feeling fine and ready to go . Review of Systems Review of Systems: All systems reviewed & are unremarkable except as noted in HPI and below (hpi) PMFSH Past Medical History Medical History Closed left clavicular fracture Distal 1/3 clavicle fx High cholesterol Hypertension Pacemaker Surgical History Surgical History History of elbow surgery Right History of hysterectomy Family History Family History Sibling Cerebrovascular accident, Onset Age: 77 Patient's sister is Mother Patient's mother is , Onset Age: 83 Father Patient's father is , Onset Age: 101 Social History Social History Smoking status: Never smoker Second hand tobacco smoke exposure: No Alcohol intake: current Drinks per week: 1 Substance use: never Do You Feel Safe in your Home?: Yes Lack of Transportation: No Lack of Food: Never True Current Housing: I Have Housing Concerned About Future Housing: No Difficulty Paying Gas/Electric Bills: No Difficulty Paying for Meds: No Currently Unemployed: No Education: High School Diploma/GED Difficulty w/ Childcare or Family Care: No Living arrangements: with family Occupation/Education: retired Spiritual care concerns: No Meds Home Medications and Allergies Home Medications Medication Instructions Recorded Confirmed Type cholecalciferol (vitamin D3) 50 2,000 unit PO DAILY #30 tabs 10/07/19 11/22/23 Rx mcg (2,000 unit) tablet gabapentin 100 mg capsule 100 mg PO BID 01/27/20 11/22/23 History aspirin 81 mg tablet,delayed 81 mg PO EVERY OTHER DAY 09/13/20 11/22/23 History release primidone 50 mg tablet 50 mg PO HS 09/13/20 11/22/23 History acetaminophen 500 mg tablet 500 mg PO Q6H PRN Pain 06/20/21 11/22/23 History alprazolam 0.5 mg tablet 0.5 mg PO BID PRN Insomnia 06/20/21 11/22/23 History atorvastatin 20 mg tablet 20 mg PO DAILY 06/20/21 11/22/23 History calcium 1 tablet PO DAILY 06/20/21 11/22/23 History carbonate,citrate-magnesium oxide 200 mg calcium-50 mg tablet docusate sodium 100 mg capsule 100 mg PO DAILY 06/20/21 11/22/23 History memantine 7 mg capsule 7 mg PO DAILY 06/20/21 11/22/23 History sprinkle,extended release 24hr melatonin 5 mg tablet 5 mg PO QHS 03/22/22 11/22/23 History omeprazole 40 mg capsule,delayed 40 mg PO DAILY 03/22/22 11/22/23 History release ondansetron 4 mg disintegrating 4 mg PO Q8H PRN Nausea 03/22/22 11/22/23 History tablet vit C 250 mg-vit E 200 unit-zinc 1 cap PO DAILY 03/22/22 11/22/23 History ox 12.5 ec-udmuus-vqvodc-zeax capsule (ICaps AREDS2) donepezil 10 mg tablet 10 mg PO QHS 02/19/23 11/22/23 History escitalopram oxalate 10 mg tablet 20 mg PO DAILY 02/19/23 11/22/23 History loperamide 2 mg capsule 2 mg PO Q6H PRN Diarrhea 02/19/23 11/22/23 History Allergies Allergy/AdvReac Type Severity Reaction St
--- NOTE | 2023-11-27 01:55 | PC.NURSE ---
Patient had to use fx yost upon being transported to [facility]
--- NOTE | 2023-11-27 02:16 | ADMGEN ---
This patient, Yomaira June, was admitted to 3 Med Surg Room 304-02. Patient/family oriented to hospital policies and general routines including ID bracelet, bed and alarms, visiting hours, pain management, procedures, bathroom and other care routines, personal items, smoking policy, room service/diet, and visiting hours. Information on how to activate the Rapid Response Team has been discussed. Patient/Family are encouraged to report perceived risks to care and to ask questions if they do not understand what they are told or what they should do.
--- NOTE | 2023-11-27 10:37 | PM.IMPN ---
Progress Note: A&P Assessment and Plan (1) Fracture of greater trochanter of left femur: Qualifiers: Encounter type: initial encounter Fracture alignment: nondisplaced Fracture type: closed Qualified Code(s): S72.115A - Nondisplaced fracture of greater trochanter of left femur, initial encounter for closed fracture Code(s): S72.112A - Displaced fracture of greater trochanter of left femur, initial encounter for closed fracture Status: Acute Assessment and Plan: 11/27/23: Patient recently discharged yesterday to [facility] however family feels it is unsafe for her to be at this rehab as the room is not adequate for an advanced dementia patient. [facility] was found to be sliding out of the bed. Family had concerns for an increased risk of falls and sent her back to the hospital for a re-evaluation. Case coordination reconsulted for better placement options. Patient denies any pain at this time Continue weight-bearing status PT and OT ordered (2) Generalized weakness: Code(s): R53.1 - Weakness Status: Acute Assessment and Plan: See above (3) Dementia: Code(s): F03.90 - Unspecified dementia, unspecified severity, without behavioral disturbance, psychotic disturbance, mood disturbance, and anxiety Status: Chronic Assessment and Plan: 11/27/23: Alert and oriented x1, pleasantly confused Continued home meds Time Spent With Patient Time with patient: Greater than 35 minutes Subjective Date/time seen: 11/27/23 10:37 Interval history: This is an 83 year old female who presented to the hospital from [facility] as Shagufta the patient's daughter stated that the room was not equipped for a patient with such advanced dementia and was found sliding out of the bed shortly after arriving. Patient was recently discharged from the hospital yesterday to [facility] for rehab of her left hip fracture. Ortho did see patient and is treating conservatively and suggested weight-bearing as tolerated as the fracture was displaced. PT and OT also worked with her during that admission 5th and gave the recommendations for rehab. Workup in the hospital included labs which were essentially unremarkable. Case coordination reconsulted for placement into a memory care rehab. On examination today patient is alert to voice and oriented to self. She denies any pain at this time. Her vital signs are stable, she is afebrile she is room air. Labs today were unremarkable. Will wait Case coordination recommendation for outpatient rehab needs. Patient restarted on home medications Review of Systems Review of Systems: ROS unobtainable: Yes unobtainable due to mental status Exam Narrative: General: In no acute distress, well nourished Head: atraumatic, no encephalopathy Eyes: EOMI, PERRLA, sclera clear ENT: moist mucous membranes, nasal passages clear, hard of hearing Neck: supple, no JVD, no adenopathy, trachea midline Cardiac: Normal S1 and S2. No murmur, gallops or friction rubs, peripheral pulses intact. Respiratory: Lungs clear to auscultation, no adventitious lung sounds Gastrointestinal: soft, non-distended, non-tender, normoactive bowel sounds. : voiding without difficulty. Extremities: moves all extremities well, no edema Skin: clean, dry, intact. No wounds or lesions. Neuro: Alert and oriented x1, pleasantly confused Psych: normal mood, normal affect, interactive Objective Data Vital Signs Vital Signs: Vital Signs - 24 hr 11/26/23 21:22 11/26/23 21:25 11/26/23 21:21 Temperature 97.7 F Pulse Rate 66 67 75 Respiratory Rate 14 14 Blood Pressure 166/67 H 172/75 H Pulse Oximetry 97 98 Oxygen Delivery Room Air 11/26/23 21:22 11/26/23 21:26 11/26/23 21:30 Temperature Pulse Rate 67 66 65 Respiratory Rate 15 14 15 Blood Pressure 166/67 H Pulse Oximetry 98 96 97 Oxygen Delivery 11/26/23
[2023-11-27] MEDS: ASPIRIN 81 MG ENTERIC TABLET PO (11:28)
[2023-11-27] MEDS: ALPRAZolam (*CRX) 0.5 MG TABLET PO ×2 (11:28→20:47)
[2023-11-27] MEDS: ACETAMINOPHEN 500 MG TABLET PO (13:12)
[2023-11-27] MEDS: GABAPENTIN 100 MG CAPSULE PO (16:44)
[2023-11-27] MEDS: MELATONIN 5 MG TABLET PO (20:43)
[2023-11-27] MEDS: PRIMIDONE 50 MG TABLET PO (20:43)
[2023-11-27] MEDS: DONEPEZIL HCL 10 MG TABLET PO (20:43)
[2023-11-27] MEDS: PANTOPRAZOLE 40 MG TABLET PO (20:43)
[2023-11-28 05:52] VITALS: BP 122/41; PULSE 66; RESP 16; TEMP 36; O2SAT 92
[2023-11-28 07:08] LABS: Hematocrit 39.5 % (37.0-47.0); Hemoglobin 12.2 g/dL (12.0-15.0); Mean Corpuscular HGB Conc 30.9 g/dl (32-36); Mean Corpuscular Hemoglobin 30.1 pg (26-34); Mean Corpuscular Volume 97.5 fl (80-100); Mean Platelet Volume 10.3 fl (7.4-10.4); Platelet Count Result 213 k/mm3 (150-375); Red Blood Count 4.05 M/mm3 (4.2-5.4); Red Cell Distribution Width 12.8 % (11.5-14.5); White Blood Count 5.8 K/mm3 (4.5-10.0)
[2023-11-28 07:29] LABS: Alanine Aminotransferase 14 U/L (6-35); Albumin Level 3.3 g/dL (3.5-5.1); Alkaline Phosphatase 124 U/L (38-126); Anion Gap 4 mmol/L (8-16); Aspartate Amino Transferase 26 U/L (14-36); Bilirubin,Total 0.4 mg/dL (0.2-1.3); Blood Urea Nitrogen 14 mg/dL (7-17); Carbon Dioxide 32 mmol/L (22-30); Chloride 106 mmol/L (98-107); Estimated CRCL calculation 43 ml/min; Estimated Glomerular Filt Rate > 60; Glucose 109 mg/dL (65-110); Sodium 142 mmol/L (137-145)
[2023-11-28] MEDS: OPTI-GEN TAB 1 TABLET PO (10:03)
[2023-11-28] MEDS: ESCITALOPRAM OXALATE 10 MG TABLET 20 MG PO (10:03)
[2023-11-28] MEDS: GABAPENTIN 100 MG CAPSULE PO ×2 (10:03→17:11)
[2023-11-28] MEDS: DOCUSATE SODIUM 100 MG CAPSULE PO (10:03)
[2023-11-28] MEDS: PANTOPRAZOLE 40 MG TABLET PO (10:03)
[2023-11-28] MEDS: CHOLECALCIFEROL 1,000 UNITS TABLET 2000 UNITS PO (10:03)
[2023-11-28] MEDS: ATORVASTATIN 20 MG TABLET PO (10:03)
[2023-11-28] MEDS: MEMANTINE HCL XR 7 MG CAP PO (10:04)
[2023-11-28 14:00] VITALS: BP 140/75; PULSE 60; RESP 20; TEMP 36.4; O2SAT 95
--- NOTE | 2023-11-28 15:43 | PM.DS ---
DS: Admitting Diagnosis Discharge Date 11/28/23 Admitting Diagnosis Generalized weakness Fracture of the greater trochanter of the left femur Dementia DS: Discharge Diagnosis Discharge Diagnosis (1) Fracture of greater trochanter of left femur: Qualifiers: Encounter type: initial encounter Fracture type: closed Fracture alignment: nondisplaced Qualified Code(s): S72.115A - Nondisplaced fracture of greater trochanter of left femur, initial encounter for closed fracture Code(s): S72.112A - Displaced fracture of greater trochanter of left femur, initial encounter for closed fracture Status: Acute (2) Generalized weakness: Code(s): R53.1 - Weakness Status: Acute (3) Dementia: Code(s): F03.90 - Unspecified dementia, unspecified severity, without behavioral disturbance, psychotic disturbance, mood disturbance, and anxiety Status: Chronic DS: Summary Hospital Course Reason for hospitalization: Generalized weakness Fracture of the great trochanter of the left femur Hospital Course: This is an 83 year old female who presented to the hospital from [facility] as Shagufta the patient's daughter stated that the room was not equipped for a patient with such advanced dementia and was found sliding out of the bed shortly after arriving.? Patient was recently discharged from the hospital yesterday to [facility] for rehab of her left hip fracture.? Ortho did see patient and is treating conservatively and suggested weight-bearing as tolerated as the fracture was displaced.? PT and OT also worked with her during that admission 5th and gave the recommendations for rehab.? Workup in the hospital included labs which were essentially unremarkable.? Case coordination obtained approval for a different rehab. VSS, patient is afebrile, currently on room air. Patient is stable for discharge at this time. She will follow up with PCP in 1 week. Status at Discharge Cognitive/behavioral status at discharge: Alert oriented x1 Functional status at discharge: uses cane/walker Overall status at discharge: patient is progressing back to baseline Time Spent with Patient Time attestation: Total time spent providing and/or coordinating discharge services: Time spent: Greater than 30 minutes Exam Narrative: General: In no acute distress, well nourished Head: atraumatic, no encephalopathy Eyes: EOMI, PERRLA, sclera clear ENT: moist mucous membranes, nasal passages clear, hard of hearing Neck: supple, no JVD, no adenopathy, trachea midline Cardiac: Normal S1 and S2. No murmur, gallops or friction rubs, peripheral pulses intact. Respiratory: Lungs clear to auscultation, no adventitious lung sounds Gastrointestinal: soft, non-distended, non-tender, normoactive bowel sounds. : voiding without difficulty. Extremities: moves all extremities well, no edema Skin: clean, dry, intact. No wounds or lesions. Neuro: Alert and oriented x1, pleasantly confused Psych: normal mood, normal affect, interactive DS: Data Data Completed and Pending Completed studies during hospitalization: None Pending studies at discharge: None Labs on day of discharge: Labs from last 24 hours 11/28/23 06:12 WBC 5.8 RBC 4.05 L Hgb 12.2 Hct 39.5 MCV 97.5 MCH 30.1 MCHC 30.9 L RDW 12.8 Plt Count 213 MPV 10.3 Sodium 142 Potassium 4.0 Chloride 106 Carbon Dioxide 32 H Anion Gap 4 L BUN 14 D Creatinine 0.70 Estim Creat Clear Calc 43 Estimated GFR > 60 Glucose 109 Calcium 9.0 Total Bilirubin 0.4 AST 26 ALT 14 Alkaline Phosphatase 124 Total Protein 6.0 L Albumin 3.3 L Procedures/Treatments: None Discharge Plan Discharge Attending physician on discharge: Denae Jones Discharging Clinician: Tatiana Carrasco Anticipated Discharge Date/Time: 11/28/23 15:41 Patient Disposition: SNF Activity: as tolerated Diet: as tolerated Patient Instructions: Aspirin (By virgen
[2023-11-28 16:36] LABS: SARS-CoV-2 RNA PCR Negative (Negative)
[2023-11-28] MEDS: ALPRAZolam (*CRX) 0.5 MG TABLET PO (17:11)
[2023-11-28] MEDS: ACETAMINOPHEN 500 MG TABLET PO (17:13)
== END 2023-11-28 17:40 ==
LOC: ANHED 11-27 00:11 → ANH3MEDSUR 11-27 02:45
PROVIDERS: Nurse Practitioner Acute Care; Admitting Provider General Practice; Emergency Provider Emergency Medicine; PCP Student in an Organized Health Care Education/Training Program; Visit Provider Student in an Organized Health Care Education/Training Program
DX: R53.1 Weakness (principal); S72.115A Nondisplaced fracture of greater trochanter of left femur, initial encounter for closed fracture; F03.90 Unspecified dementia, unspecified severity, without behavioral disturbance, psychotic disturbance, mood disturbance, and anxiety; E78.00 Pure hypercholesterolemia, unspecified; I10 Essential (primary) hypertension; F10.90 Alcohol use, unspecified, uncomplicated; F32.A Depression, unspecified; K21.9 Gastro-esophageal reflux disease without esophagitis; G47.00 Insomnia, unspecified; Z20.822 Contact with and (suspected) exposure to COVID-19; Z95.0 Presence of cardiac pacemaker; Z79.82 Long term (current) use of aspirin; Z79.1 Long term (current) use of non-steroidal anti-inflammatories (NSAID); Z79.899 Other long term (current) drug therapy
CPT/HCPCS: 36415; 70110; 70450; 71045; 71260; 73521; 73700; 80048; 80053; 81001; 81003; 82550; 85025; 85027; 87635; 93005; 97110; 97116; 97161; 97165; 97166; 97530; 97535; 99285; A9270; G0378; J2270; J7030; Q9967